=== PATIENT | male | born 1935 | race Caucasian/White ===

== ENCOUNTER → 2018-06-02 09:15 | Outpatient (CLI) | payer MEDICARE, SELFPAY | PROVIDERS: PCP Family Medicine; Visit Provider Urology | DX: N45.1 Epididymitis (principal) | CPT/HCPCS: 99213 ==

== ENCOUNTER → 2018-06-09 10:45 | Outpatient (BNVA) | payer MEDICARE, SELFPAY | PROVIDERS: PCP Family Medicine; Visit Provider Urology | DX: N45.1 Epididymitis (principal) | CPT/HCPCS: 99213 ==

== ENCOUNTER → 2018-06-25 13:04 | Outpatient (BNVA) | payer MEDICARE, SELFPAY | PROVIDERS: Visit Provider Urology | DX: C67.9 Malignant neoplasm of bladder, unspecified (principal) | CPT/HCPCS: 52000; 99213 ==

== ENCOUNTER 2018-07-02 00:19 | Outpatient (CLI) | payer MEDICARE, SELFPAY ==
--- NOTE | 2018-07-02 08:30 | ETT_ITS ---
*[facility]* *[facility]* [address] [place] [address] Stress Electrocardiography Josafat protocol Date of study: 07/02/2018 *PATIENT PRESENTATION* Height: 170.2cm (67in) Blood Pressure: Weight: 96.4kg (212lb) BSA: 2.17m^2 Ordering physician: Mark Starr MD Impressions: - Abnormal study , ST depressions without angina. - Subjectively negative. Objectively positive - horizontal ST depression in II, III, aVF, V4-V6. - Patient in rate controlled atrial fib at baseline with rapid escalation of heart rate with exercise. Summary: 1. Stress: The target heart rate was achieved. The heart rate response to stress is exaggerated. Indication: I48.0. History: REASON FOR VISIT: PATIENT DIAGNOSED LAST YEAR WITH ATRIAL FIBRILLATION AND STARTED ON METOPROLOL 50MG. ON THIS DOSAGE PATIENT REPORTS INCREASED DIZZINESS. METOPROLOL WAS THEREFORE DROPPED TO 25MG. PATIENT STATES THAT WHEN HE WAKES UP IN THE MORNING HE DOES NOT FEEL WELL RESTED, BUT IS OTHERWISE ASYMPTOMATIC. PATIENT BELIEVES HE IS HAVING STRESS TEST TO EVALUATE MEDICATION EFFECTIVENESS. PATIENT LAST TOOK METOPROLOL ON FRIDAY, RECOMMENDED BY FOR THIS EXAM. ECHOCARDIOGRAM 07/25/17: EJECTION FRACTION 55-60% WITH MILD LVH. DILATED RIGHT VENTRICLE. MODERATELY DILATED LEFT ATRIUM. MODERATE REGURGITATION OF TRICUSPID VALVE. LAST EKG 10/22/17: ATRIAL FIBRILLATION WITH RIGHT BUNDLE BRANCH BLOCK, INVERTED T WAVE, HEART RATE 53 BPM. PAST MEDICAL HISTORY: ATRIAL FIBRILLATION, HYPERTENSION, HYPERLIPIDEMIA, BLADDER CANCER. FAMILY HISTORY: MOTHER - ANGINA. SMOKING STATUS: NONE (DISTANT HISTORY). EXERCISE ROUTINE: NONE. Risk factors: Family history of coronary artery disease. Hypertension. Dyslipidemia. Cholesterol: 101mg/dl. HDL: 30mg/dl. LDL: 61mg/dl. Triglycerides: 76mg/dl. ALLERGIES: NO KNOWN ALLERGIES. MEDICATIONS: AMLODIPINE BESYLATE 5MG, DAILY. METOPROLOL CR 25MG, DAILY. ELIQUIS 5MG, BID. LOSARTAN POTASSIUM 50MG, DAILY. MULTIVITAMIN, DAILY. LECITHIN 1200MG, DAILY. LOVASTATIN 10MG, HS. Protocol: Josafat protocol. Baseline ECG: ATRIAL FIBRILLATION WITH RIGHT BUNDLE BRANCH BLOCK. OCCASIONAL PREMATURE VENTRICULAR CONTRACTIONS. INVERTED T WAVE. HEART RATE 80 BPM. Stress protocol: + +---+ +---+ +--------+ !Stage !HR !BP (mmHg) !Sat!Rhythm !Symptoms! + +---+ +---+ +--------+ !Baseline supine !80 !164/60 (95)!---!A-fib, occasional !--------! ! ! ! ! !PVC's ! ! + +---+ +---+ +--------+ !Baseline standing !86 !168/80 !---! !--------! ! ! !(109) ! ! ! ! + +---+ +---+ +--------+ !Stage I; 1.7mph, !162!142/88 !96%! !None ! !10degrees; 3 min ! !(106) ! ! ! ! + +---+ +---+ +--------+ !Peak stress !174! !---! !--------! + +---+ +---+ +--------+ !Recovery; 1 min !143!188/80 !---!Frequent PVC's !--------! ! ! !(116) ! ! ! ! + +---+ +---+ +--------+ !Recovery; 3 min !85 !180/76 !---! !--------! ! ! !(111) ! ! ! ! + +---+ +---+ +--------+ !Recovery; 6 min !82 !134/72 (93)!---!Occasional PVC's !--------! + +---+ +---+ +--------+ * Stress results: Maximal heart rate during stress was 174bpm (125% of maximal predicted heart rate). The maximal predicted heart rate was 139bpm. The target heart rate was achieved. The heart rate response to stress is exaggerated. The rate-pressure product for the peak heart rate and blood pressure was 91885dm Hg/min. Stress ECG: TREADMILL PORTION OF EXERCISE STRESS TEST ENDED IN 2MIN 31SEC DUE TO PATIENT EXCEDING MAX HEART RATE. TACHYCARDIC HEART RATE RESPONSE TO EXERCISE. HYPOTENSIVE BLOOD PRESSURE RESPONSE TO EXERCISE. ASYMPTOMATIC. MAX HR 174 BPM, 125% OF TARGET. APPROXIMATE METS ACHIEVED 4.64. NO ANGINA REPORTED. OCCASIONAL PREMATURE VENTRICULAR CONTRACTIONS AT BASELINE WITH INCREASE IN PVCS NOTED IN MINUTE TWO OF RECOVERY PERIOD. SHORT PERIODS OF BIGEMINY/TRIGEMINY NOTED DURING THIS TIME. PVC FREQUENCY DECREASING TO BASELINE BY MINUTE FIVE OF RECOVERY. SIGNIFICANT HORIZONTAL/DOWNSLOPING ST SEGMENT DEPRESSION NOTED IN LEADS II, AVF, V4, V5, AND V6 AT THE BEGINNING OF RECOVERY. ST SEGMENT CHANGES RETURNING TO BASELINE BY MINUTE FOUR OF RECOVERY PERIOD. MARKEDLY DIMINISHED FUNCTIONAL CAPACITY. Study data: Gonsalo Bernal MD supervised and was readily available during the procedure. This study was interpreted by [facility]. Study status: Routine. Consent: The risks, benefits, and alternatives to the procedure were explained to the patient and informed consent was obtained. Procedure: Initial setup. A baseline ECG was recorded. Surface ECG leads and manual cuff blood pressure measurements were monitored. Heart sounds: Irregular. Lung sounds: Normal. Treadmill exercise testing was performed using the Josafat protocol. Study completion: The patient tolerated the procedure well and was discharged from the lab. Discharge: The patient left the laboratory in stable condition. Birthdate: Patient birthdate: 1935. Sex: Gender: male. Study date: Study date: 07/02/2018. Study time: 08:30 AM. Signature Documentation: The Stress ECG portion of this study was interpreted by Gonsalo Bernal MD. Electronically signed by Gonsalo Bernal 07/02/2018 11:11
== END 2018-07-02 00:39 ==
PROVIDERS: PCP Family Medicine; Visit Provider Internal Medicine Interventional Cardiology
DX: I48.0 Paroxysmal atrial fibrillation (principal); R94.30 Abnormal result of cardiovascular function study, unspecified; I45.10 Unspecified right bundle-branch block; I10 Essential (primary) hypertension; E78.5 Hyperlipidemia, unspecified; Z82.49 Family history of ischemic heart disease and other diseases of the circulatory system
CPT/HCPCS: 93016; 93018; 93017

== ENCOUNTER → 2018-07-13 12:42 | Outpatient (BNVA) | payer MEDICARE, SELFPAY | PROVIDERS: Visit Provider Internal Medicine Interventional Cardiology | DX: I48.91 Unspecified atrial fibrillation (principal); I10 Essential (primary) hypertension; Z71.2 Person consulting for explanation of examination or test findings | CPT/HCPCS: 99213 ==

== ENCOUNTER 2018-07-20 00:10 | Outpatient (CLI) | payer MEDICARE, SELFPAY ==
--- NOTE | 2018-07-20 06:40 | MERGEMPI_ITS ---
*[facility]* *[facility]* [address] [place] [address] Myocardial Perfusion Imaging - SPECT Regadenoson Date of study: 07/20/2018 *PATIENT PRESENTATION* Height: 170.2cm (67in) Blood Pressure: Weight: 96.4kg (212lb) BSA: 2.17m^2 Referring physician: Mark Starr MD Ordering physician: Mark Starr MD Impressions: Normal perfusion by Tc99m Sestamibi Imaging. Summary: 1. Myocardial perfusion imaging: No myocardial perfusion defects noted. 2. The calculated left ventricular ejection fraction after stress: 60%. No left ventricular regional motion abnormality. Indication: R94.31. History: REASON FOR TESTING: PT REPORTS HE IS HERE FOR HEART DISEASE SCREENING. PAST MEDICAL HISTORY: ATRIAL FIBRILLATION. HYPERTENSION. RV DILATATION. HYPERLIPIDEMIA. EF 55%-60%-AUGUST 04, 2017. FAMILY HISTORY: MOTHER-ANGINA. SMOKING: REMOTE HISTORY QUIT 1956. EXERCISE: PT IS ACTIVE REGULARLY. Risk factors: Hypertension. Dyslipidemia. Cholesterol: 101mg/dl. HDL: 30mg/dl. LDL: 61mg/dl. Triglycerides: 76mg/dl. ALLERGIES: NO KNOWN DRUG ALLERGIES. MEDICATIONS: AMLODIPINE BESYLATE 5 MG DAILY. METOPROLOL CR 25 MG DAILY. ELIQUIS 5 MG BID. LOSARTAN POTASSIUM 50 MG DAILY. MULIVITAMIN DAILY. LECITHIN 1200 MG DAILY. LOVASTATIN 10 MG HS. Imaging Technique: Protocol: Regadenoson. Acquisition: Gated SPECT; 1 day - rest/stress. The patient was imaged in the supine position. Attenuation correction used. Isotope administration: - Rest. Tc[99m]-sestamibi. Dose: 10.4mCi. Date: 2017. Injection time: 08:10 AM. Injection to stress time: 00:45. - Stress. Tc[99m]-sestamibi. Dose: 33.3mCi. Injection time: 09:50 AM. 1-2 min before end of exercise Baseline ECG: ATIAL FIBRILLATION. HR=87 BPM. RBB. Stress protocol: +--------+---+ + + !Stage !HR !BP (mmHg) !Comments ! +--------+---+ + + !Baseline!83 !155/75 (102)! ! +--------+---+ + + !1 min !128!162/74 (103)!Inject Regadenoson.! +--------+---+ + + !3 min !95 !176/78 (111)! ! +--------+---+ + + !6 min !90 !168/68 (101)! ! +--------+---+ + + * Stress results: The rate-pressure product for the peak heart rate and blood pressure was 08411cx Hg/min. Stress ECG: LEXISCAN STRESS TEST ENDED IN 7 MINUTES & 33 SECONDS. PT EXPERIENCED NO SIGNIFICANT SIDE EFFECTS FROM LEXISCAN. HEART RATE IN ATRIAL FIBRILLATION AT BASELINE BLOOD PRESSURE DID NOT DECREASE IN RESPONSE TO LEXISCAN INJECTION NO SIGNIFICANT ECTOPY NO ANGINA ST SEGMENT DEPRESSIONS IN PRECORDIAL LEADS AT BASELINE. PT HAS A RBBB. MILD ST SEGMENT DEPRESSIONS IN INFERIOR LEADS NOTED 2-3 MINUTES POST LEXISCAN INJECTION. Myocardial perfusion: Imaging information: gated. No myocardial perfusion defects noted. Ventricular Function (Wall Motion): The calculated left ventricular ejection fraction after stress: 60%. No left ventricular regional motion abnormality. Study data: Mark Starr MD supervised and was readily available during the procedure. This study was interpreted by [facility]. Study status: Routine. Consent: The risks, benefits, and alternatives to the procedure were explained to the patient and informed consent was obtained. Procedure: Initial setup. A baseline ECG was recorded. Surface ECG leads and manual cuff blood pressure measurements were monitored. Heart sounds: Normal. Lung sounds: Normal. Regadenoson stress test. Stress testing was performed, with regadenoson by intravenous bolus, for a total dose of 0.4mgover 10.00sec, followed by a 5ml saline flush. The infusion was terminated due to per protocol. Study completion: All catheters inserted during the procedure were removed. The patient tolerated the procedure well and was discharged from the lab. Discharge: The patient left the laboratory in stable condition. Birthdate: Patient birthdate: 1935. Sex: Gender: male. Study date: Study date: 07/20/2018. Study time: 06:40 AM. Electronically signed by Mark Starr MD 07/20/2018 17:56
[2018-07-20] MEDS: Regadenoson 0.4 MG/5 ML SYR IVP (10:24)
== END 2018-07-20 00:30 ==
PROVIDERS: PCP Family Medicine; Visit Provider Internal Medicine Interventional Cardiology
DX: R94.31 Abnormal electrocardiogram [ECG] [EKG] (principal); I48.91 Unspecified atrial fibrillation; I10 Essential (primary) hypertension; I51.7 Cardiomegaly
CPT/HCPCS: 78452; 93016; 93018; 93017; J2785

== ENCOUNTER 2018-08-10 08:27 | Outpatient (CLI) | payer MEDICARE, SELFPAY ==
[2018-08-10 09:29] LABS: HCT 39.7 % (40.0-50.0); Mean Corp. HGB Concentration 32.7 g/dL (32.0-36.0); Mean Corpuscular Hemoglobin 29.8 pg (27.0-33.0); Mean Corpuscular Volume 91.1 fL (80-95); Mean Platelet Volume 11.8 fL (8.0-11.0); Platelet Count 240 x1000/uL (130-400); RBC 4.36 m/cumm (4.50-6.00); RBC Distribution Width 16.4 % (11.8-14.1); White Blood Cell Count 10.07 k/cumm (4.4-10.8)
[2018-08-10 10:09] LABS: Potassium 4.7 mmol/L (3.5-5.1)
== END 2018-08-10 08:47 ==
PROVIDERS: PCP Family Medicine; Visit Provider Family Medicine
DX: I10 Essential (primary) hypertension (principal); D64.9 Anemia, unspecified
CPT/HCPCS: 36415; 85027; 82565; 84132

== ENCOUNTER → 2018-08-24 08:00 | Outpatient (BNVA) | payer MEDICARE, SELFPAY | PROVIDERS: PCP Family Medicine; Visit Provider Urology | DX: C67.1 Malignant neoplasm of dome of bladder (principal); N32.9 Bladder disorder, unspecified | CPT/HCPCS: 52224; 99212; 99213 ==

== ENCOUNTER 2018-08-31 02:12 | Outpatient (CLI) | payer MEDICARE, SELFPAY | END 2018-08-31 02:32 | PROVIDERS: PCP Family Medicine; Visit Provider Dermatology | DX: L40.9 Psoriasis, unspecified (principal) | CPT/HCPCS: 96910 ==

== ENCOUNTER 2018-09-02 02:07 | Outpatient (CLI) | payer MEDICARE, SELFPAY | END 2018-09-02 02:27 | PROVIDERS: PCP Family Medicine; Visit Provider Dermatology | DX: L40.9 Psoriasis, unspecified (principal) | CPT/HCPCS: 96910 ==

== ENCOUNTER 2018-09-04 01:19 | Outpatient (CLI) | payer MEDICARE, SELFPAY | END 2018-09-04 01:39 | PROVIDERS: PCP Family Medicine; Visit Provider Dermatology | DX: L40.9 Psoriasis, unspecified (principal) | CPT/HCPCS: 96910 ==

== ENCOUNTER 2018-09-07 01:35 | Outpatient (CLI) | payer MEDICARE, SELFPAY | END 2018-09-07 01:55 | PROVIDERS: PCP Family Medicine; Visit Provider Dermatology | DX: L40.9 Psoriasis, unspecified (principal) | CPT/HCPCS: 96910 ==

== ENCOUNTER 2018-09-09 02:30 | Outpatient (CLI) | payer MEDICARE, SELFPAY | END 2018-09-09 02:50 | PROVIDERS: PCP Family Medicine; Visit Provider Dermatology | DX: L40.9 Psoriasis, unspecified (principal) | CPT/HCPCS: 96910 ==

== ENCOUNTER 2018-09-11 02:45 | Outpatient (CLI) | payer MEDICARE, SELFPAY | END 2018-09-11 03:05 | PROVIDERS: PCP Family Medicine; Visit Provider Dermatology | DX: L40.9 Psoriasis, unspecified (principal) | CPT/HCPCS: 96910 ==

== ENCOUNTER 2018-09-14 02:35 | Outpatient (CLI) | payer MEDICARE, SELFPAY | END 2018-09-14 02:55 | PROVIDERS: PCP Family Medicine; Visit Provider Dermatology | DX: L40.9 Psoriasis, unspecified (principal) | CPT/HCPCS: 96910 ==

== ENCOUNTER 2018-09-16 02:22 | Outpatient (CLI) | payer MEDICARE, SELFPAY | END 2018-09-16 02:42 | PROVIDERS: PCP Family Medicine; Visit Provider Dermatology | DX: L40.9 Psoriasis, unspecified (principal) | CPT/HCPCS: 96910 ==

== ENCOUNTER 2018-09-18 02:15 | Outpatient (CLI) | payer MEDICARE, SELFPAY | END 2018-09-18 02:35 | PROVIDERS: PCP Family Medicine; Visit Provider Dermatology | DX: L40.9 Psoriasis, unspecified (principal) | CPT/HCPCS: 96910 ==

== ENCOUNTER 2018-09-21 02:33 | Outpatient (CLI) | payer MEDICARE, SELFPAY | END 2018-09-21 02:53 | PROVIDERS: PCP Family Medicine; Visit Provider Dermatology | DX: L40.9 Psoriasis, unspecified (principal) | CPT/HCPCS: 96910 ==

== ENCOUNTER 2018-09-25 02:28 | Outpatient (CLI) | payer MEDICARE, SELFPAY | END 2018-09-25 02:48 | PROVIDERS: PCP Family Medicine; Visit Provider Dermatology | DX: L40.9 Psoriasis, unspecified (principal) | CPT/HCPCS: 96910 ==

== ENCOUNTER 2018-09-30 01:09 | Outpatient (CLI) | payer MEDICARE, SELFPAY | END 2018-09-30 01:29 | PROVIDERS: PCP Family Medicine; Visit Provider Dermatology | DX: L40.9 Psoriasis, unspecified (principal) | CPT/HCPCS: 96910 ==

== ENCOUNTER 2018-10-02 02:33 | Outpatient (CLI) | payer MEDICARE, SELFPAY | END 2018-10-02 02:53 | PROVIDERS: PCP Family Medicine; Visit Provider Dermatology | DX: L40.9 Psoriasis, unspecified (principal) | CPT/HCPCS: 96910 ==

== ENCOUNTER 2018-10-05 02:20 | Outpatient (CLI) | payer MEDICARE, SELFPAY | END 2018-10-05 02:40 | PROVIDERS: PCP Family Medicine; Visit Provider Dermatology | DX: L40.9 Psoriasis, unspecified (principal) | CPT/HCPCS: 96910 ==

== ENCOUNTER 2018-10-07 02:40 | Outpatient (CLI) | payer MEDICARE, SELFPAY | END 2018-10-07 03:00 | PROVIDERS: PCP Family Medicine; Visit Provider Dermatology | DX: L40.9 Psoriasis, unspecified (principal) | CPT/HCPCS: 96910 ==

== ENCOUNTER 2018-10-09 02:46 | Outpatient (CLI) | payer MEDICARE, SELFPAY | END 2018-10-09 03:06 | PROVIDERS: PCP Family Medicine; Visit Provider Dermatology | DX: L40.9 Psoriasis, unspecified (principal) | CPT/HCPCS: 96910 ==

== ENCOUNTER 2018-10-12 01:44 | Outpatient (CLI) | payer MEDICARE, SELFPAY | END 2018-10-12 02:04 | PROVIDERS: PCP Family Medicine; Visit Provider Dermatology | DX: L40.9 Psoriasis, unspecified (principal) | CPT/HCPCS: 96910 ==

== ENCOUNTER 2018-10-14 01:10 | Outpatient (CLI) | payer MEDICARE, SELFPAY | END 2018-10-14 01:30 | PROVIDERS: PCP Family Medicine; Visit Provider Dermatology | DX: L40.9 Psoriasis, unspecified (principal) | CPT/HCPCS: 96910 ==

== ENCOUNTER 2018-10-16 01:05 | Outpatient (CLI) | payer MEDICARE, SELFPAY | END 2018-10-16 01:25 | PROVIDERS: PCP Family Medicine; Visit Provider Dermatology | DX: L40.9 Psoriasis, unspecified (principal) | CPT/HCPCS: 96910 ==

== ENCOUNTER 2018-10-19 02:40 | Outpatient (CLI) | payer MEDICARE, SELFPAY | END 2018-10-19 03:00 | PROVIDERS: PCP Family Medicine; Visit Provider Dermatology | DX: L40.9 Psoriasis, unspecified (principal) | CPT/HCPCS: 96910 ==

== ENCOUNTER 2018-10-21 02:14 | Outpatient (CLI) | payer MEDICARE, SELFPAY | END 2018-10-21 02:34 | PROVIDERS: PCP Family Medicine; Visit Provider Dermatology | DX: L40.9 Psoriasis, unspecified (principal) | CPT/HCPCS: 96910 ==

== ENCOUNTER 2018-10-23 01:43 | Outpatient (CLI) | payer MEDICARE, SELFPAY | END 2018-10-23 02:03 | PROVIDERS: PCP Family Medicine; Visit Provider Dermatology | DX: L40.9 Psoriasis, unspecified (principal) | CPT/HCPCS: 96910 ==

== ENCOUNTER 2018-10-26 02:00 | Outpatient (CLI) | payer MEDICARE, SELFPAY | END 2018-10-26 02:20 | PROVIDERS: PCP Family Medicine; Visit Provider Dermatology | DX: L40.9 Psoriasis, unspecified (principal) | CPT/HCPCS: 96910 ==

== ENCOUNTER 2018-10-28 02:40 | Outpatient (CLI) | payer MEDICARE, SELFPAY | END 2018-10-28 03:00 | PROVIDERS: PCP Family Medicine; Visit Provider Dermatology | DX: L40.9 Psoriasis, unspecified (principal) | CPT/HCPCS: 96910 ==

== ENCOUNTER 2018-10-30 01:19 | Outpatient (CLI) | payer MEDICARE, SELFPAY | END 2018-10-30 01:39 | PROVIDERS: PCP Family Medicine; Visit Provider Dermatology | DX: L40.9 Psoriasis, unspecified (principal) | CPT/HCPCS: 96910 ==

== ENCOUNTER 2018-11-02 01:37 | Outpatient (CLI) | payer MEDICARE, SELFPAY | END 2018-11-02 01:57 | PROVIDERS: PCP Family Medicine; Visit Provider Dermatology | DX: L40.9 Psoriasis, unspecified (principal); I48.91 Unspecified atrial fibrillation; I10 Essential (primary) hypertension; Z71.2 Person consulting for explanation of examination or test findings | CPT/HCPCS: 96910; 93005; 99213 ==

== ENCOUNTER 2018-11-02 09:29 | Outpatient (CLI) | payer MEDICARE, SELFPAY | END 2018-11-02 09:49 | PROVIDERS: PCP Family Medicine; Visit Provider Internal Medicine Interventional Cardiology | DX: I48.91 Unspecified atrial fibrillation (principal); I10 Essential (primary) hypertension; R94.31 Abnormal electrocardiogram [ECG] [EKG] | CPT/HCPCS: 93005; 93010 ==

== ENCOUNTER 2018-11-04 05:28 | Outpatient (CLI) | payer MEDICARE, SELFPAY | END 2018-11-04 05:48 | PROVIDERS: PCP Family Medicine; Visit Provider Dermatology | DX: L40.9 Psoriasis, unspecified (principal) | CPT/HCPCS: 96910 ==

== ENCOUNTER 2018-11-06 07:20 | Outpatient (CLI) | payer MEDICARE, SELFPAY | END 2018-11-06 07:40 | PROVIDERS: PCP Family Medicine; Visit Provider Dermatology | DX: L40.9 Psoriasis, unspecified (principal) | CPT/HCPCS: 96910 ==

== ENCOUNTER 2018-11-09 02:24 | Outpatient (CLI) | payer MEDICARE, SELFPAY | END 2018-11-09 02:44 | PROVIDERS: PCP Family Medicine; Visit Provider Dermatology | DX: L40.9 Psoriasis, unspecified (principal) | CPT/HCPCS: 96910 ==

== ENCOUNTER 2018-11-11 02:05 | Outpatient (CLI) | payer MEDICARE, SELFPAY | END 2018-11-11 02:25 | PROVIDERS: PCP Family Medicine; Visit Provider Dermatology | DX: L40.9 Psoriasis, unspecified (principal) | CPT/HCPCS: 96910 ==

== ENCOUNTER 2018-11-13 01:52 | Outpatient (CLI) | payer MEDICARE, SELFPAY | END 2018-11-13 02:12 | PROVIDERS: PCP Family Medicine; Visit Provider Dermatology | DX: L40.9 Psoriasis, unspecified (principal) | CPT/HCPCS: 96910 ==

== ENCOUNTER 2018-11-16 02:57 | Outpatient (CLI) | payer MEDICARE, SELFPAY | END 2018-11-16 03:17 | PROVIDERS: PCP Family Medicine; Visit Provider Dermatology | DX: L40.9 Psoriasis, unspecified (principal) | CPT/HCPCS: 96910 ==

== ENCOUNTER 2018-11-18 02:11 | Outpatient (CLI) | payer MEDICARE, SELFPAY | END 2018-11-18 02:31 | PROVIDERS: PCP Family Medicine; Visit Provider Dermatology | DX: L40.9 Psoriasis, unspecified (principal) | CPT/HCPCS: 96910 ==

== ENCOUNTER 2018-11-20 03:11 | Outpatient (CLI) | payer MEDICARE, SELFPAY | END 2018-11-20 03:31 | PROVIDERS: PCP Family Medicine; Visit Provider Dermatology | DX: L40.9 Psoriasis, unspecified (principal) | CPT/HCPCS: 96910 ==

== ENCOUNTER → 2018-11-23 08:43 | Outpatient (BNVA) | payer MEDICARE, SELFPAY | PROVIDERS: PCP Family Medicine; Visit Provider Urology | DX: C67.9 Malignant neoplasm of bladder, unspecified (principal) | CPT/HCPCS: 52000; 99213 ==

== ENCOUNTER 2018-11-25 01:28 | Outpatient (CLI) | payer MEDICARE, SELFPAY | END 2018-11-25 01:48 | PROVIDERS: PCP Family Medicine; Visit Provider Dermatology | DX: L40.9 Psoriasis, unspecified (principal) | CPT/HCPCS: 96910 ==

== ENCOUNTER 2018-11-30 07:25 | Outpatient (CLI) | payer MEDICARE, SELFPAY | END 2018-11-30 07:45 | PROVIDERS: PCP Family Medicine; Visit Provider Dermatology | DX: L40.9 Psoriasis, unspecified (principal) | CPT/HCPCS: 96910 ==

== ENCOUNTER 2018-12-02 01:04 | Outpatient (CLI) | payer MEDICARE, SELFPAY | END 2018-12-02 01:24 | PROVIDERS: PCP Family Medicine; Visit Provider Dermatology | DX: L40.9 Psoriasis, unspecified (principal) | CPT/HCPCS: 96910 ==

== ENCOUNTER 2018-12-04 01:40 | Outpatient (CLI) | payer MEDICARE, SELFPAY | END 2018-12-04 02:00 | PROVIDERS: PCP Family Medicine; Visit Provider Dermatology | DX: L40.9 Psoriasis, unspecified (principal) | CPT/HCPCS: 96910 ==

== ENCOUNTER 2018-12-07 02:36 | Outpatient (CLI) | payer MEDICARE, SELFPAY | END 2018-12-07 02:56 | PROVIDERS: PCP Family Medicine; Visit Provider Dermatology | DX: L40.9 Psoriasis, unspecified (principal) | CPT/HCPCS: 96910 ==

== ENCOUNTER 2018-12-09 03:02 | Outpatient (CLI) | payer MEDICARE, SELFPAY | END 2018-12-09 03:22 | PROVIDERS: PCP Family Medicine; Visit Provider Dermatology | DX: L40.9 Psoriasis, unspecified (principal) | CPT/HCPCS: 96910 ==

== ENCOUNTER 2018-12-11 01:15 | Outpatient (CLI) | payer MEDICARE, SELFPAY | END 2018-12-11 01:35 | PROVIDERS: PCP Family Medicine; Visit Provider Dermatology | DX: L40.9 Psoriasis, unspecified (principal) | CPT/HCPCS: 96910 ==

== ENCOUNTER 2018-12-14 03:05 | Outpatient (CLI) | payer MEDICARE, SELFPAY | END 2018-12-14 03:25 | PROVIDERS: PCP Family Medicine; Visit Provider Dermatology | DX: L40.9 Psoriasis, unspecified (principal) | CPT/HCPCS: 96910 ==

== ENCOUNTER 2018-12-16 03:07 | Outpatient (CLI) | payer MEDICARE, SELFPAY | END 2018-12-16 03:27 | PROVIDERS: PCP Family Medicine; Visit Provider Dermatology | DX: L40.9 Psoriasis, unspecified (principal) | CPT/HCPCS: 96910 ==

== ENCOUNTER 2018-12-18 02:29 | Outpatient (CLI) | payer MEDICARE, SELFPAY | END 2018-12-18 02:49 | PROVIDERS: PCP Family Medicine; Visit Provider Dermatology | DX: L40.9 Psoriasis, unspecified (principal) | CPT/HCPCS: 96910 ==

== ENCOUNTER 2018-12-21 02:00 | Outpatient (CLI) | payer MEDICARE, SELFPAY | END 2018-12-21 02:20 | PROVIDERS: PCP Family Medicine; Visit Provider Dermatology | DX: L40.9 Psoriasis, unspecified (principal) | CPT/HCPCS: 96910 ==

== ENCOUNTER → 2018-12-22 09:35 | Outpatient (BNVA) | payer MEDICARE, SELFPAY | PROVIDERS: PCP Family Medicine; Visit Provider Urology | DX: C67.9 Malignant neoplasm of bladder, unspecified (principal) | CPT/HCPCS: 52000; 99212 ==

== ENCOUNTER 2018-12-23 02:45 | Outpatient (CLI) | payer MEDICARE, SELFPAY | END 2018-12-23 03:05 | PROVIDERS: PCP Family Medicine; Visit Provider Dermatology | DX: L40.9 Psoriasis, unspecified (principal) | CPT/HCPCS: 96910 ==

== ENCOUNTER 2018-12-25 01:42 | Outpatient (CLI) | payer MEDICARE, SELFPAY | END 2018-12-25 02:02 | PROVIDERS: PCP Family Medicine; Visit Provider Dermatology | DX: L40.9 Psoriasis, unspecified (principal) | CPT/HCPCS: 96910 ==

== ENCOUNTER 2018-12-28 02:07 | Outpatient (CLI) | payer MEDICARE, SELFPAY | END 2018-12-28 02:27 | PROVIDERS: PCP Family Medicine; Visit Provider Dermatology | DX: L40.9 Psoriasis, unspecified (principal) | CPT/HCPCS: 96910 ==

== ENCOUNTER 2018-12-30 02:26 | Outpatient (CLI) | payer MEDICARE, SELFPAY | END 2018-12-30 02:46 | PROVIDERS: PCP Family Medicine; Visit Provider Dermatology | DX: L40.9 Psoriasis, unspecified (principal) | CPT/HCPCS: 96910 ==

== ENCOUNTER 2019-01-01 02:13 | Outpatient (CLI) | payer MEDICARE, SELFPAY | END 2019-01-01 02:33 | PROVIDERS: PCP Family Medicine; Visit Provider Dermatology | DX: L40.9 Psoriasis, unspecified (principal) | CPT/HCPCS: 96910 ==

== ENCOUNTER 2019-01-04 02:17 | Outpatient (CLI) | payer MEDICARE, SELFPAY | END 2019-01-04 02:37 | PROVIDERS: PCP Family Medicine; Visit Provider Dermatology | DX: L40.9 Psoriasis, unspecified (principal) | CPT/HCPCS: 96910 ==

== ENCOUNTER 2019-01-06 04:48 | Outpatient (CLI) | payer MEDICARE, SELFPAY | END 2019-01-06 05:08 | PROVIDERS: PCP Family Medicine; Visit Provider Dermatology | DX: L40.9 Psoriasis, unspecified (principal) | CPT/HCPCS: 96910 ==

== ENCOUNTER 2019-01-08 03:04 | Outpatient (CLI) | payer MEDICARE, SELFPAY | END 2019-01-08 03:24 | PROVIDERS: PCP Family Medicine; Visit Provider Dermatology | DX: L40.9 Psoriasis, unspecified (principal) | CPT/HCPCS: 96910 ==

== ENCOUNTER 2019-01-11 02:24 | Outpatient (CLI) | payer MEDICARE, SELFPAY | END 2019-01-11 02:44 | PROVIDERS: PCP Family Medicine; Visit Provider Dermatology | DX: L40.9 Psoriasis, unspecified (principal) | CPT/HCPCS: 96910 ==

== ENCOUNTER 2019-01-13 01:20 | Outpatient (CLI) | payer MEDICARE, SELFPAY | END 2019-01-13 01:40 | PROVIDERS: PCP Family Medicine; Visit Provider Dermatology | DX: L40.9 Psoriasis, unspecified (principal) | CPT/HCPCS: 96910 ==

== ENCOUNTER 2019-01-15 01:33 | Outpatient (CLI) | payer MEDICARE, SELFPAY | END 2019-01-15 01:53 | PROVIDERS: PCP Family Medicine; Visit Provider Dermatology | DX: L40.9 Psoriasis, unspecified (principal) | CPT/HCPCS: 96910 ==

== ENCOUNTER 2019-01-18 01:51 | Outpatient (CLI) | payer MEDICARE, SELFPAY | END 2019-01-18 02:11 | PROVIDERS: PCP Family Medicine; Visit Provider Dermatology | DX: L40.9 Psoriasis, unspecified (principal) | CPT/HCPCS: 96910 ==

== ENCOUNTER 2019-01-20 00:52 | Outpatient (CLI) | payer MEDICARE, SELFPAY | END 2019-01-20 01:12 | PROVIDERS: PCP Family Medicine; Visit Provider Dermatology | DX: L40.9 Psoriasis, unspecified (principal) | CPT/HCPCS: 96910 ==

== ENCOUNTER 2019-01-22 01:34 | Outpatient (CLI) | payer MEDICARE, SELFPAY | END 2019-01-22 01:54 | PROVIDERS: PCP Family Medicine; Visit Provider Dermatology | DX: L40.9 Psoriasis, unspecified (principal) | CPT/HCPCS: 96910 ==

== ENCOUNTER 2019-01-25 02:17 | Outpatient (CLI) | payer MEDICARE, SELFPAY | END 2019-01-25 02:37 | PROVIDERS: PCP Family Medicine; Visit Provider Dermatology | DX: L40.9 Psoriasis, unspecified (principal) | CPT/HCPCS: 96910 ==

== ENCOUNTER 2019-02-24 09:07 | Outpatient (CLI) | payer MEDICARE, SELFPAY ==
[2019-02-24 10:44] LABS: HCT 40.2 % (40.0-50.0); HGB 13.4 g/dL (13.5-17.5); Mean Corp. HGB Concentration 33.3 g/dL (32.0-36.0); Mean Corpuscular Hemoglobin 30.9 pg (27.0-33.0); Mean Corpuscular Volume 92.6 fL (80-95); Mean Platelet Volume 11.9 fL (8.0-11.0); Platelet Count 179 x1000/uL (130-400); RBC 4.34 m/cumm (4.50-6.00); RBC Distribution Width 13.8 % (11.8-14.1); White Blood Cell Count 8.45 k/cumm (4.4-10.8)
[2019-02-24 13:43] LABS: Hemoglobin A1C 6.2 % (4.5-6.2)
== END 2019-02-24 09:27 ==
PROVIDERS: PCP Family Medicine; Visit Provider Family Medicine
DX: D64.9 Anemia, unspecified (principal); I10 Essential (primary) hypertension; E74.39 Other disorders of intestinal carbohydrate absorption
CPT/HCPCS: 36415; 85027; 83036

== ENCOUNTER → 2019-03-23 08:43 | Outpatient (BNVA) | payer MEDICARE, SELFPAY | PROVIDERS: PCP Family Medicine; Visit Provider Urology | DX: C67.9 Malignant neoplasm of bladder, unspecified (principal); Z87.898 Personal history of other specified conditions; Z79.01 Long term (current) use of anticoagulants; I48.91 Unspecified atrial fibrillation; I10 Essential (primary) hypertension | CPT/HCPCS: 52000; 99212 ==

== ENCOUNTER 2019-03-23 09:35 | Outpatient (CLI) | payer MEDICARE, SELFPAY ==
[2019-03-24 08:45] LABS: PSA, Diagnostic 4.5 ng/ml (0-6.5)
== END 2019-03-23 09:55 ==
PROVIDERS: PCP Family Medicine; Visit Provider Urology
DX: Z87.898 Personal history of other specified conditions (principal); C67.9 Malignant neoplasm of bladder, unspecified; N40.0 Benign prostatic hyperplasia without lower urinary tract symptoms; Z79.01 Long term (current) use of anticoagulants; I48.91 Unspecified atrial fibrillation; I10 Essential (primary) hypertension
CPT/HCPCS: 36415; 52000; 99212; 84153

== ENCOUNTER 2019-05-10 09:39 | Outpatient (CLI) | payer MEDICARE, SELFPAY | END 2019-05-10 09:59 | PROVIDERS: PCP Family Medicine; Visit Provider Internal Medicine Interventional Cardiology | DX: I48.91 Unspecified atrial fibrillation (principal); I10 Essential (primary) hypertension | CPT/HCPCS: 99213 ==

== ENCOUNTER → 2019-05-14 09:46 | Outpatient (BNVA) | payer MEDICARE, SELFPAY | PROVIDERS: PCP Family Medicine; Visit Provider Urology | DX: C67.9 Malignant neoplasm of bladder, unspecified (principal) | CPT/HCPCS: 52000; 99212 ==

== ENCOUNTER → 2019-06-17 09:44 | Outpatient (BNVA) | payer MEDICARE, SELFPAY | PROVIDERS: PCP Family Medicine; Visit Provider Urology | DX: C67.9 Malignant neoplasm of bladder, unspecified (principal) | CPT/HCPCS: 52000; 99213 ==

== ENCOUNTER → 2019-06-28 11:02 | Outpatient (BNVA) | payer MEDICARE, SELFPAY | PROVIDERS: PCP Family Medicine; Visit Provider Nurse Practitioner Gerontology | DX: R69 Illness, unspecified (principal) ==

== ENCOUNTER 2019-06-28 11:20 | Outpatient (CLI) | payer MEDICARE, SELFPAY ==
[2019-06-28 12:21] LABS: HGB 13.2 g/dL (13.5-17.5)
== END 2019-06-28 11:40 ==
PROVIDERS: PCP Family Medicine; Visit Provider Nurse Practitioner Gerontology
DX: R31.0 Gross hematuria (principal); C67.9 Malignant neoplasm of bladder, unspecified; Z79.01 Long term (current) use of anticoagulants
CPT/HCPCS: 36415; 81003; 99213; 85014; 85018

== ENCOUNTER 2019-06-28 11:57 | Outpatient (REF) | payer MEDICARE, SELFPAY | END 2019-06-28 12:17 | LOC: LBN 11:57 | PROVIDERS: PCP Family Medicine; Visit Provider Nurse Practitioner Gerontology | DX: R31.0 Gross hematuria (principal) | CPT/HCPCS: 87086 ==

== ENCOUNTER 2019-07-27 09:44 | Outpatient (CLI) | payer MEDICARE, SELFPAY ==
[2019-07-27 10:51] LABS: CREATININE 1.02 mg/dL (0.70-1.30); Calculated LDL 59 mg/dL; Cholesterol 106 mg/dL (50-200); HDL Cholesterol 34 mg/dL (40-60); Potassium 4.7 mmol/L (3.5-5.1); Triglyceride 67 mg/dL (30-150)
== END 2019-07-27 10:04 ==
PROVIDERS: PCP Family Medicine; Visit Provider Family Medicine
DX: I10 Essential (primary) hypertension (principal)
CPT/HCPCS: 36415; 80061; 82565; 84132

== ENCOUNTER 2019-09-15 01:55 | Outpatient (CLI) | payer MEDICARE, SELFPAY | END 2019-09-15 02:15 | PROVIDERS: PCP Family Medicine; Visit Provider Dermatology | DX: L40.9 Psoriasis, unspecified (principal) | CPT/HCPCS: 96900; 99211 ==

== ENCOUNTER 2019-09-17 00:38 | Outpatient (CLI) | payer MEDICARE, SELFPAY | END 2019-09-17 00:58 | PROVIDERS: PCP Family Medicine; Visit Provider Dermatology | DX: L40.9 Psoriasis, unspecified (principal); C67.9 Malignant neoplasm of bladder, unspecified | CPT/HCPCS: 52000; 96900; 99213 ==

== ENCOUNTER 2019-09-20 02:16 | Outpatient (CLI) | payer MEDICARE, SELFPAY | END 2019-09-20 02:36 | PROVIDERS: PCP Family Medicine; Visit Provider Dermatology | DX: L40.9 Psoriasis, unspecified (principal) | CPT/HCPCS: 96900 ==

== ENCOUNTER 2019-09-22 01:25 | Outpatient (CLI) | payer MEDICARE, SELFPAY | END 2019-09-22 01:45 | PROVIDERS: PCP Family Medicine; Visit Provider Dermatology | DX: L40.9 Psoriasis, unspecified (principal) | CPT/HCPCS: 96900 ==

== ENCOUNTER 2019-09-24 02:07 | Outpatient (CLI) | payer MEDICARE, SELFPAY | END 2019-09-24 02:27 | PROVIDERS: PCP Family Medicine; Visit Provider Dermatology | DX: L40.9 Psoriasis, unspecified (principal) | CPT/HCPCS: 96900; 99211 ==

== ENCOUNTER 2019-09-27 01:58 | Outpatient (CLI) | payer MEDICARE, SELFPAY | END 2019-09-27 02:18 | PROVIDERS: PCP Family Medicine; Visit Provider Dermatology | DX: L40.9 Psoriasis, unspecified (principal) | CPT/HCPCS: 96900 ==

== ENCOUNTER 2019-10-01 03:20 | Outpatient (CLI) | payer MEDICARE, SELFPAY | END 2019-10-01 03:40 | PROVIDERS: PCP Family Medicine; Visit Provider Dermatology | DX: L40.9 Psoriasis, unspecified (principal) | CPT/HCPCS: 96900 ==

== ENCOUNTER 2019-10-04 01:52 | Outpatient (CLI) | payer MEDICARE, SELFPAY | END 2019-10-04 02:12 | PROVIDERS: PCP Family Medicine; Visit Provider Dermatology | DX: L40.9 Psoriasis, unspecified (principal) | CPT/HCPCS: 96900 ==

== ENCOUNTER 2019-10-08 02:13 | Outpatient (CLI) | payer MEDICARE, SELFPAY | END 2019-10-08 02:33 | PROVIDERS: PCP Family Medicine; Visit Provider Dermatology | DX: L40.9 Psoriasis, unspecified (principal) | CPT/HCPCS: 96900 ==

== ENCOUNTER 2019-10-11 03:16 | Outpatient (CLI) | payer MEDICARE, SELFPAY | END 2019-10-11 03:36 | PROVIDERS: PCP Family Medicine; Visit Provider Dermatology | DX: L40.9 Psoriasis, unspecified (principal) | CPT/HCPCS: 96900 ==

== ENCOUNTER 2019-10-13 02:27 | Outpatient (CLI) | payer MEDICARE, SELFPAY | END 2019-10-13 02:47 | PROVIDERS: PCP Family Medicine; Visit Provider Dermatology | DX: L40.9 Psoriasis, unspecified (principal) | CPT/HCPCS: 96900 ==

== ENCOUNTER 2019-10-15 02:56 | Outpatient (CLI) | payer MEDICARE, SELFPAY | END 2019-10-15 03:16 | PROVIDERS: PCP Family Medicine; Visit Provider Dermatology | DX: L40.9 Psoriasis, unspecified (principal) | CPT/HCPCS: 96900 ==

== ENCOUNTER 2019-10-18 03:01 | Outpatient (CLI) | payer MEDICARE, SELFPAY | END 2019-10-18 03:21 | PROVIDERS: PCP Family Medicine; Visit Provider Dermatology | DX: L40.9 Psoriasis, unspecified (principal) | CPT/HCPCS: 96900 ==

== ENCOUNTER 2019-10-20 00:56 | Outpatient (CLI) | payer MEDICARE, SELFPAY | END 2019-10-20 01:16 | PROVIDERS: PCP Family Medicine; Visit Provider Dermatology | DX: L40.9 Psoriasis, unspecified (principal) | CPT/HCPCS: 96900 ==

== ENCOUNTER 2019-10-22 01:20 | Outpatient (CLI) | payer MEDICARE, SELFPAY | END 2019-10-22 01:40 | PROVIDERS: PCP Family Medicine; Visit Provider Dermatology | DX: L40.9 Psoriasis, unspecified (principal) | CPT/HCPCS: 96900 ==

== ENCOUNTER 2019-10-25 01:38 | Outpatient (CLI) | payer MEDICARE, SELFPAY | END 2019-10-25 01:58 | PROVIDERS: PCP Family Medicine; Visit Provider Dermatology | DX: L40.9 Psoriasis, unspecified (principal) | CPT/HCPCS: 96900 ==

== ENCOUNTER 2019-10-27 02:19 | Outpatient (CLI) | payer MEDICARE, SELFPAY | END 2019-10-27 02:39 | PROVIDERS: PCP Family Medicine; Visit Provider Dermatology | DX: L40.9 Psoriasis, unspecified (principal) | CPT/HCPCS: 96900 ==

== ENCOUNTER 2019-10-29 00:20 | Outpatient (CLI) | payer MEDICARE, SELFPAY | END 2019-10-29 00:40 | PROVIDERS: PCP Family Medicine; Visit Provider Dermatology | DX: L40.9 Psoriasis, unspecified (principal) | CPT/HCPCS: 96900 ==

== ENCOUNTER 2019-11-01 02:27 | Outpatient (CLI) | payer MEDICARE, SELFPAY | END 2019-11-01 02:47 | PROVIDERS: PCP Family Medicine; Visit Provider Dermatology | DX: L40.9 Psoriasis, unspecified (principal) | CPT/HCPCS: 96900 ==

== ENCOUNTER 2019-11-03 00:44 | Outpatient (CLI) | payer MEDICARE, SELFPAY | END 2019-11-03 01:04 | PROVIDERS: PCP Family Medicine; Visit Provider Dermatology | DX: L40.9 Psoriasis, unspecified (principal) | CPT/HCPCS: 96900 ==

== ENCOUNTER 2019-11-05 00:13 | Outpatient (CLI) | payer MEDICARE, SELFPAY | END 2019-11-05 00:33 | PROVIDERS: PCP Family Medicine; Visit Provider Dermatology | DX: L40.9 Psoriasis, unspecified (principal) | CPT/HCPCS: 96900 ==

== ENCOUNTER 2019-11-08 02:46 | Outpatient (CLI) | payer MEDICARE, SELFPAY | END 2019-11-08 03:06 | PROVIDERS: PCP Family Medicine; Visit Provider Dermatology | DX: L40.9 Psoriasis, unspecified (principal) | CPT/HCPCS: 96900 ==

== ENCOUNTER 2019-11-10 02:40 | Outpatient (CLI) | payer MEDICARE, SELFPAY | END 2019-11-10 03:00 | PROVIDERS: PCP Family Medicine; Visit Provider Dermatology | DX: L40.9 Psoriasis, unspecified (principal) | CPT/HCPCS: 96900 ==

== ENCOUNTER 2019-11-15 02:31 | Outpatient (CLI) | payer MEDICARE, SELFPAY | END 2019-11-15 02:51 | PROVIDERS: PCP Family Medicine; Visit Provider Dermatology | DX: L40.9 Psoriasis, unspecified (principal) | CPT/HCPCS: 96900 ==

== ENCOUNTER 2019-11-17 02:33 | Outpatient (CLI) | payer MEDICARE, SELFPAY | END 2019-11-17 02:53 | PROVIDERS: PCP Family Medicine; Visit Provider Dermatology | DX: L40.9 Psoriasis, unspecified (principal) | CPT/HCPCS: 96900 ==

== ENCOUNTER 2019-11-19 01:34 | Outpatient (CLI) | payer MEDICARE, SELFPAY | END 2019-11-19 01:54 | PROVIDERS: PCP Family Medicine; Visit Provider Dermatology | DX: L40.9 Psoriasis, unspecified (principal) | CPT/HCPCS: 96900 ==

== ENCOUNTER 2019-11-22 03:39 | Outpatient (CLI) | payer MEDICARE, SELFPAY | END 2019-11-22 03:59 | PROVIDERS: PCP Family Medicine; Visit Provider Dermatology | DX: L40.9 Psoriasis, unspecified (principal) | CPT/HCPCS: 96900 ==

== ENCOUNTER 2019-11-24 02:33 | Outpatient (CLI) | payer MEDICARE, SELFPAY ==
--- NOTE | 2019-11-24 07:45 | DI.US_ITS ---
EXAM: US CAROTID CLINICAL HISTORY: Syncope,R55 TECHNIQUE: Ultrasound performed using standard protocol. COMPARISON: Cardiac from 07/25/2017 FINDINGS: On the right, there is calcific plaque seen in the common carotid artery, the carotid bulb and the in ternal carotid artery proximally. No hemodynamically significant velocity elevations are present. T here is biphasic flow through the right vertebral artery. On the left, there is calcific plaque seen in the common carotid artery, carotid bulb and proximal in ternal carotid artery. No hemodynamically significant velocity elevations are present. There is ant egrade flow through the left vertebral artery. IMPRESSION: No evidence of hemodynamically significant cervical carotid artery stenosis.
== END 2019-11-24 02:53 ==
PROVIDERS: PCP Family Medicine; Visit Provider Family Medicine
DX: R55 Syncope and collapse (principal); L40.9 Psoriasis, unspecified
CPT/HCPCS: 96900; 93880

== ENCOUNTER 2019-11-24 03:37 | Outpatient (CLI) | payer MEDICARE, SELFPAY | END 2019-11-24 03:57 | PROVIDERS: PCP Family Medicine; Visit Provider Dermatology | DX: L40.9 Psoriasis, unspecified (principal) | CPT/HCPCS: 96900 ==

== ENCOUNTER 2019-11-26 01:24 | Outpatient (CLI) | payer MEDICARE, SELFPAY | END 2019-11-26 01:44 | PROVIDERS: PCP Family Medicine; Visit Provider Dermatology | DX: L40.9 Psoriasis, unspecified (principal) | CPT/HCPCS: 96900 ==

== ENCOUNTER 2019-11-26 02:17 | Outpatient (CLI) | payer MEDICARE, SELFPAY ==
--- NOTE | 2019-12-01 09:26 | W.HOLTRPT ---
Date of service: 12/01/19 Time of Service: 09:27 Holter Monitor Report Holter Monitor Note: The patient underwent Holter monitoring for a period of 48 hours and 19 minutes. Rhythm throughout was atrial fibrillation. Average heart rate was 59 bpm and minimum was 46. There were very rare ventricular ectopic beat Maximum heart rate was 105. There were 2 significant pauses which occurred during sleep, 1 2.9 seconds and the other 3.02 seconds The recording labeled ventricular tachycardia appeared to be artifact
== END 2019-11-26 02:37 ==
PROVIDERS: PCP Family Medicine; Visit Provider Family Medicine
DX: R55 Syncope and collapse (principal); I48.91 Unspecified atrial fibrillation; L40.9 Psoriasis, unspecified
CPT/HCPCS: 96900; 93225

== ENCOUNTER 2019-11-29 01:55 | Outpatient (CLI) | payer MEDICARE, SELFPAY | END 2019-11-29 02:15 | PROVIDERS: PCP Family Medicine; Visit Provider Dermatology | DX: L40.9 Psoriasis, unspecified (principal) | CPT/HCPCS: 96900 ==

== ENCOUNTER 2019-11-29 08:16 | Outpatient (CLI) | payer MEDICARE, SELFPAY | END 2019-11-29 08:36 | PROVIDERS: PCP Family Medicine; Visit Provider Family Medicine | DX: R55 Syncope and collapse (principal); I48.91 Unspecified atrial fibrillation; L40.9 Psoriasis, unspecified | CPT/HCPCS: 96900; 93226 ==

== ENCOUNTER 2019-12-01 02:18 | Outpatient (CLI) | payer MEDICARE, SELFPAY | END 2019-12-01 02:38 | PROVIDERS: PCP Family Medicine; Visit Provider Dermatology | DX: L40.9 Psoriasis, unspecified (principal); R55 Syncope and collapse; I48.91 Unspecified atrial fibrillation | CPT/HCPCS: 93227; 96900 ==

== ENCOUNTER 2019-12-03 02:01 | Outpatient (CLI) | payer MEDICARE, SELFPAY | END 2019-12-03 02:21 | PROVIDERS: PCP Family Medicine; Visit Provider Dermatology | DX: L40.9 Psoriasis, unspecified (principal) | CPT/HCPCS: 96900 ==

== ENCOUNTER 2019-12-06 02:09 | Outpatient (CLI) | payer MEDICARE, SELFPAY | END 2019-12-06 02:29 | PROVIDERS: PCP Family Medicine; Visit Provider Dermatology | DX: L40.9 Psoriasis, unspecified (principal) | CPT/HCPCS: 96900 ==

== ENCOUNTER 2019-12-08 02:49 | Outpatient (CLI) | payer MEDICARE, SELFPAY | END 2019-12-08 03:09 | PROVIDERS: PCP Family Medicine; Visit Provider Dermatology | DX: L40.9 Psoriasis, unspecified (principal) | CPT/HCPCS: 96900 ==

== ENCOUNTER 2019-12-10 00:44 | Outpatient (CLI) | payer MEDICARE, SELFPAY | END 2019-12-10 01:04 | PROVIDERS: PCP Family Medicine; Visit Provider Dermatology | DX: L40.9 Psoriasis, unspecified (principal) | CPT/HCPCS: 96900 ==

== ENCOUNTER 2019-12-13 02:01 | Outpatient (CLI) | payer MEDICARE, SELFPAY | END 2019-12-13 02:21 | PROVIDERS: PCP Family Medicine; Visit Provider Dermatology | DX: L40.9 Psoriasis, unspecified (principal) | CPT/HCPCS: 96900 ==

== ENCOUNTER 2019-12-15 04:14 | Outpatient (CLI) | payer MEDICARE, SELFPAY | END 2019-12-15 04:34 | PROVIDERS: PCP Family Medicine; Visit Provider Dermatology | DX: L40.9 Psoriasis, unspecified (principal) | CPT/HCPCS: 96900 ==

== ENCOUNTER 2019-12-17 10:10 | Outpatient (CLI) | payer MEDICARE, SELFPAY | END 2019-12-17 10:30 | PROVIDERS: PCP Family Medicine; Visit Provider Dermatology | DX: C67.9 Malignant neoplasm of bladder, unspecified (principal) | CPT/HCPCS: 52000; 99213 ==

== ENCOUNTER 2019-12-17 13:19 | Outpatient (REF) | payer MEDICARE, SELFPAY ==
--- NOTE | 2019-12-17 13:00 | PAPNONF_PTH ---
PATIENT: Rocky Booker LOC: [facility] U#:[id number] AGE/SX: 84/M ROOM: RE12/17/[address]: Garth Bean MD : 1935 BED: DIS: 12/17/2019 SPEC #: [id number] RECD: 12/17/19 16:30 STATUS: HAILEY REQ #: [id number] ISABEL: 12/17/19 13:[address]: Garth Bean DEPT: [facility] Cytology RECD BY: Ivana Cummings ENTERED: 12/17/19 16:30 SP TYPE: BRUNILDA MULLEN DR: Jeremy Ramírez MD Tissues: 1 - BODY FLUID CYTO(SPUTUM/URINE)[facility] Procedures: BODY FLUID CYTO(URINE/SPUTUM) Comments: [id number] (TOTAL VOLUME = 70 ml's) (35 ml's URINE & 35 ml's CYTOLYT ADDED IN 2 CONTAINERS)
== END 2019-12-17 13:39 ==
LOC: LBN 13:19
PROVIDERS: PCP Family Medicine; Visit Provider Urology
DX: C67.1 Malignant neoplasm of dome of bladder (principal); R82.89 Other abnormal findings on cytological and histological examination of urine
CPT/HCPCS: 88104

== ENCOUNTER 2019-12-22 02:59 | Outpatient (CLI) | payer MEDICARE, SELFPAY | END 2019-12-22 03:19 | PROVIDERS: PCP Family Medicine; Visit Provider Dermatology | DX: L40.9 Psoriasis, unspecified (principal) | CPT/HCPCS: 96900 ==

== ENCOUNTER → 2020-03-31 09:55 | Outpatient (BNVA) | payer MEDICARE, SELFPAY | PROVIDERS: PCP Family Medicine; Referring Provider Family Medicine; Visit Provider Urology | DX: C67.9 Malignant neoplasm of bladder, unspecified (principal) | CPT/HCPCS: 52000; 99212 ==

== ENCOUNTER → 2020-05-15 09:02 | Outpatient (BNVA) | payer MEDICARE, SELFPAY | PROVIDERS: PCP Family Medicine; Visit Provider Internal Medicine Cardiovascular Disease | DX: I48.20 Chronic atrial fibrillation, unspecified (principal); I10 Essential (primary) hypertension | CPT/HCPCS: 99203; 99214 ==

== ENCOUNTER → 2020-07-31 08:36 | Outpatient (BNVA) | payer MEDICARE, SELFPAY | PROVIDERS: PCP Family Medicine; Referring Provider Family Medicine; Visit Provider Urology | DX: C67.9 Malignant neoplasm of bladder, unspecified (principal); I10 Essential (primary) hypertension | CPT/HCPCS: 52000; 99213 ==

== ENCOUNTER 2020-07-31 09:08 | Outpatient (REF) | payer MEDICARE, SELFPAY ==
--- NOTE | 2020-07-31 09:00 | PAPNONF_PTH ---
PATIENT: Rocky Booker LOC: [facility] U#:[id number] AGE/SX: 84/M ROOM: RE07/31/[address]: Garth Bean MD : 1935 BED: DIS: 07/31/2020 SPEC #: [id number] RECD: 07/31/20 13:05 STATUS: HAILEY REJeancarlos #: [id number] ISABEL: 07/31/20 09:[address]: Garth Bean DEPT: [facility] Cytology RECD BY: Ivana Cummings ENTERED: 07/31/20 13:05 SP TYPE: PAPGIANA MULLEN DR: Jeremy Ramírez MD Tissues: 1 - BODY FLUID CYTO(SPUTUM/URINE)[facility] Procedures: BODY FLUID CYTO(URINE/SPUTUM) Comments: [id number] (TOTAL VOLUME = 100 ml's) (50 ml's URINE & 50 ml's CYTOLYT ADDED)
== END 2020-07-31 09:28 ==
LOC: LBN 09:08
PROVIDERS: PCP Family Medicine; Visit Provider Urology
DX: C67.9 Malignant neoplasm of bladder, unspecified (principal)
CPT/HCPCS: 88104

== ENCOUNTER 2020-10-18 07:01 | Outpatient (CLI) | payer MEDICARE, SELFPAY | END 2020-10-18 07:21 | PROVIDERS: PCP Family Medicine; Visit Provider Dermatology | DX: L40.9 Psoriasis, unspecified (principal) | CPT/HCPCS: 96900 ==

== ENCOUNTER 2020-10-20 06:25 | Outpatient (CLI) | payer MEDICARE, SELFPAY | END 2020-10-20 06:45 | PROVIDERS: PCP Family Medicine; Visit Provider Dermatology | DX: L40.9 Psoriasis, unspecified (principal) | CPT/HCPCS: 96900 ==

== ENCOUNTER 2020-10-23 06:56 | Outpatient (CLI) | payer MEDICARE, SELFPAY | END 2020-10-23 07:16 | PROVIDERS: PCP Family Medicine; Visit Provider Dermatology | DX: L40.9 Psoriasis, unspecified (principal) | CPT/HCPCS: 96900 ==

== ENCOUNTER 2020-10-25 07:01 | Outpatient (CLI) | payer MEDICARE, SELFPAY | END 2020-10-25 07:21 | PROVIDERS: PCP Family Medicine; Visit Provider Dermatology | DX: L40.9 Psoriasis, unspecified (principal) | CPT/HCPCS: 96900 ==

== ENCOUNTER 2020-10-27 07:00 | Outpatient (CLI) | payer MEDICARE, SELFPAY | END 2020-10-27 07:20 | PROVIDERS: PCP Family Medicine; Visit Provider Dermatology | DX: L40.9 Psoriasis, unspecified (principal) | CPT/HCPCS: 96900 ==

== ENCOUNTER 2020-10-30 06:55 | Outpatient (CLI) | payer MEDICARE, SELFPAY | END 2020-10-30 07:15 | PROVIDERS: PCP Family Medicine; Visit Provider Dermatology | DX: L40.9 Psoriasis, unspecified (principal) | CPT/HCPCS: 96900 ==

== ENCOUNTER 2020-11-01 06:56 | Outpatient (CLI) | payer MEDICARE, SELFPAY | END 2020-11-01 07:16 | PROVIDERS: PCP Family Medicine; Visit Provider Dermatology | DX: L40.9 Psoriasis, unspecified (principal) | CPT/HCPCS: 96900 ==

== ENCOUNTER 2020-11-03 09:41 | Outpatient (CLI) | payer MEDICARE, SELFPAY | END 2020-11-03 10:01 | PROVIDERS: PCP Family Medicine; Visit Provider Dermatology | DX: L40.9 Psoriasis, unspecified (principal) | CPT/HCPCS: 96900 ==

== ENCOUNTER 2020-11-06 16:01 | Outpatient (CLI) | payer MEDICARE, SELFPAY | END 2020-11-06 16:21 | PROVIDERS: PCP Family Medicine; Visit Provider Dermatology | DX: L40.9 Psoriasis, unspecified (principal) | CPT/HCPCS: 96900 ==

== ENCOUNTER 2020-11-08 07:06 | Outpatient (CLI) | payer MEDICARE, SELFPAY | END 2020-11-08 07:07 | disposition home or self-care (01) | LOC: PUVA 07:08 | PROVIDERS: PCP Family Medicine; Visit Provider Dermatology | DX: L40.9 Psoriasis, unspecified (principal) | CPT/HCPCS: 96900 ==

== ENCOUNTER 2020-11-10 02:39 | Outpatient (CLI) | payer MEDICARE, SELFPAY | END 2020-11-10 02:40 | disposition home or self-care (01) | LOC: PUVA 02:40 | PROVIDERS: PCP Family Medicine; Visit Provider Dermatology | DX: L40.9 Psoriasis, unspecified (principal) | CPT/HCPCS: 96900 ==

== ENCOUNTER 2020-11-13 21:49 | Outpatient (CLI) | payer MEDICARE, SELFPAY | END 2020-11-13 21:50 | disposition home or self-care (01) | PROVIDERS: PCP Family Medicine; Visit Provider Dermatology | DX: L40.9 Psoriasis, unspecified (principal) | CPT/HCPCS: 96900 ==

== ENCOUNTER 2020-11-15 07:11 | Outpatient (CLI) | payer MEDICARE, SELFPAY | END 2020-11-15 07:12 | disposition home or self-care (01) | LOC: PUVA 11-17 07:11 | PROVIDERS: PCP Family Medicine; Visit Provider Dermatology | DX: L40.9 Psoriasis, unspecified (principal) | CPT/HCPCS: 96900 ==

== ENCOUNTER 2020-11-17 06:25 | Outpatient (CLI) | payer MEDICARE, SELFPAY | END 2020-11-17 06:26 | disposition home or self-care (01) | LOC: PUVA 06:27 | PROVIDERS: PCP Family Medicine; Visit Provider Dermatology | DX: L40.9 Psoriasis, unspecified (principal) | CPT/HCPCS: 96900 ==

== ENCOUNTER 2020-11-20 07:30 | Outpatient (CLI) | payer MEDICARE, SELFPAY | END 2020-11-20 07:31 | disposition home or self-care (01) | LOC: PUVA 11-22 11:02 | PROVIDERS: PCP Family Medicine; Visit Provider Dermatology | DX: L40.9 Psoriasis, unspecified (principal) | CPT/HCPCS: 96900 ==

== ENCOUNTER 2020-11-22 11:02 | Outpatient (CLI) | payer MEDICARE, SELFPAY | END 2020-11-22 11:03 | disposition home or self-care (01) | LOC: PUVA 11:02 | PROVIDERS: PCP Family Medicine; Visit Provider Dermatology | DX: L40.9 Psoriasis, unspecified (principal) | CPT/HCPCS: 96900 ==

== ENCOUNTER 2020-11-24 07:07 | Outpatient (CLI) | payer MEDICARE, SELFPAY | END 2020-11-24 07:08 | disposition home or self-care (01) | LOC: PUVA 07:08 | PROVIDERS: PCP Family Medicine; Visit Provider Dermatology | DX: L40.9 Psoriasis, unspecified (principal) | CPT/HCPCS: 96900 ==

== ENCOUNTER 2020-11-27 07:07 | Outpatient (CLI) | payer MEDICARE, SELFPAY | END 2020-11-27 07:08 | disposition home or self-care (01) | LOC: PUVA 07:07 | PROVIDERS: PCP Family Medicine; Visit Provider Dermatology | DX: L40.9 Psoriasis, unspecified (principal) | CPT/HCPCS: 96900 ==

== ENCOUNTER 2020-11-29 07:04 | Outpatient (CLI) | payer MEDICARE, SELFPAY | END 2020-11-29 07:05 | disposition home or self-care (01) | LOC: PUVA 07:04 | PROVIDERS: PCP Family Medicine; Visit Provider Dermatology | DX: L40.9 Psoriasis, unspecified (principal) | CPT/HCPCS: 96900 ==

== ENCOUNTER 2020-12-04 04:55 | Outpatient (CLI) | payer MEDICARE, SELFPAY | END 2020-12-04 04:56 | disposition home or self-care (01) | LOC: PUVA 04:55 | PROVIDERS: PCP Family Medicine; Visit Provider Dermatology | DX: L40.9 Psoriasis, unspecified (principal) | CPT/HCPCS: 96900 ==

== ENCOUNTER 2020-12-08 01:46 | Outpatient (CLI) | payer MEDICARE, SELFPAY | END 2020-12-08 01:47 | disposition home or self-care (01) | LOC: PUVA 01:46 | PROVIDERS: PCP Family Medicine; Visit Provider Dermatology | DX: L40.9 Psoriasis, unspecified (principal) | CPT/HCPCS: 96900 ==

== ENCOUNTER 2020-12-11 11:45 | Outpatient (CLI) | payer MEDICARE, SELFPAY | END 2020-12-11 11:46 | disposition home or self-care (01) | LOC: PUVA 12-25 11:45 | PROVIDERS: PCP Family Medicine; Visit Provider Dermatology | DX: L40.9 Psoriasis, unspecified (principal) | CPT/HCPCS: 96900 ==

== ENCOUNTER 2020-12-15 01:22 | Outpatient (CLI) | payer MEDICARE, SELFPAY | END 2020-12-15 01:23 | disposition home or self-care (01) | LOC: PUVA 01:22 | PROVIDERS: PCP Family Medicine; Visit Provider Dermatology | DX: L40.9 Psoriasis, unspecified (principal) | CPT/HCPCS: 96900 ==

== ENCOUNTER 2020-12-18 07:16 | Outpatient (CLI) | payer MEDICARE, SELFPAY | END 2020-12-18 07:17 | disposition home or self-care (01) | LOC: PUVA 07:16 | PROVIDERS: PCP Family Medicine; Visit Provider Dermatology | DX: L40.9 Psoriasis, unspecified (principal) | CPT/HCPCS: 96900 ==

== ENCOUNTER 2020-12-22 01:39 | Outpatient (CLI) | payer MEDICARE, SELFPAY | END 2020-12-22 01:40 | disposition home or self-care (01) | PROVIDERS: PCP Family Medicine; Visit Provider Dermatology | DX: L40.9 Psoriasis, unspecified (principal) | CPT/HCPCS: 96900 ==

== ENCOUNTER 2020-12-25 07:25 | Outpatient (CLI) | payer MEDICARE, SELFPAY | END 2020-12-25 07:26 | disposition home or self-care (01) | LOC: PUVA 07:25 | PROVIDERS: PCP Family Medicine; Visit Provider Dermatology | DX: L40.9 Psoriasis, unspecified (principal) | CPT/HCPCS: 96900 ==

== ENCOUNTER 2020-12-29 01:14 | Outpatient (CLI) | payer MEDICARE, SELFPAY | END 2020-12-29 01:15 | disposition home or self-care (01) | LOC: PUVA 01:15 | PROVIDERS: PCP Family Medicine; Visit Provider Dermatology | DX: L40.9 Psoriasis, unspecified (principal) | CPT/HCPCS: 96900 ==

== ENCOUNTER 2021-01-01 09:29 | Outpatient (CLI) | payer MEDICARE, SELFPAY | END 2021-01-01 09:30 | disposition home or self-care (01) | LOC: PUVA 09:30 | PROVIDERS: PCP Family Medicine; Visit Provider Dermatology | DX: L40.9 Psoriasis, unspecified (principal) | CPT/HCPCS: 96900 ==

== ENCOUNTER 2021-01-05 01:26 | Outpatient (CLI) | payer MEDICARE, SELFPAY | END 2021-01-05 01:27 | disposition home or self-care (01) | LOC: PUVA 01:26 | PROVIDERS: PCP Family Medicine; Visit Provider Dermatology | DX: L40.9 Psoriasis, unspecified (principal) | CPT/HCPCS: 96900 ==

== ENCOUNTER 2021-01-08 07:37 | Outpatient (CLI) | payer MEDICARE, SELFPAY | END 2021-01-08 07:38 | disposition home or self-care (01) | LOC: PUVA 07:38 | PROVIDERS: PCP Family Medicine; Visit Provider Dermatology | DX: L40.9 Psoriasis, unspecified (principal) | CPT/HCPCS: 96900 ==

== ENCOUNTER 2021-01-12 01:20 | Outpatient (CLI) | payer MEDICARE, SELFPAY | END 2021-01-12 01:21 | disposition home or self-care (01) | LOC: PUVA 01:20 | PROVIDERS: PCP Family Medicine; Visit Provider Dermatology | DX: L40.9 Psoriasis, unspecified (principal) | CPT/HCPCS: 96900 ==

== ENCOUNTER 2021-01-17 07:24 | Outpatient (CLI) | payer MEDICARE, SELFPAY | END 2021-01-17 07:25 | disposition home or self-care (01) | LOC: PUVA 07:24 | PROVIDERS: PCP Family Medicine; Visit Provider Dermatology | DX: L40.9 Psoriasis, unspecified (principal) | CPT/HCPCS: 96900 ==

== ENCOUNTER 2021-01-24 07:34 | Outpatient (CLI) | payer MEDICARE, SELFPAY | END 2021-01-24 07:35 | disposition home or self-care (01) | LOC: PUVA 07:34 | PROVIDERS: PCP Family Medicine; Visit Provider Dermatology | DX: L40.9 Psoriasis, unspecified (principal) | CPT/HCPCS: 96900 ==

== ENCOUNTER → 2021-01-30 08:39 | Outpatient (BNVA) | payer MEDICARE, SELFPAY | PROVIDERS: PCP Family Medicine; Referring Provider Family Medicine; Visit Provider Urology | DX: C67.9 Malignant neoplasm of bladder, unspecified (principal) | CPT/HCPCS: 52000; 99213 ==

== ENCOUNTER 2021-01-30 10:54 | Outpatient (REF) | payer MEDICARE, SELFPAY ==
--- NOTE | 2021-01-30 10:00 | PAPNONF_PTH ---
PATIENT: Rocky Booker LOC: [facility] U#:[id number] AGE/SX: 85/M ROOM: RE01/30/[address]: Garth Bean MD : 1935 BED: DIS: 01/30/2021 SPEC #: [id number] RECD: 01/30/21 13:04 STATUS: HAILEY RE #: [id number] ISABEL: 01/30/21 10:[address]: Garth Bean [facility] Cytology RECD BY: Ivana Cummings ENTERED: 01/30/21 13:04 SP TYPE: BRUNILDA MULLEN DR: Jeremy Ramírez MD Tissues: 1 - BODY FLUID CYTO(SPUTUM/URINE)[facility] Procedures: BODY FLUID CYTO(URINE/SPUTUM) Comments: [id number] (TOTAL VOLUME = 50 ml's) (50 ml's URINE & 50 ml's CYTOLYT ADDED)
== END 2021-01-30 10:55 | disposition home or self-care (01) ==
LOC: LBN 10:54
PROVIDERS: PCP Family Medicine; Visit Provider Urology
DX: R82.998 Other abnormal findings in urine (principal); Z85.51 Personal history of malignant neoplasm of bladder
CPT/HCPCS: 88104

== ENCOUNTER 2021-01-31 07:16 | Outpatient (CLI) | payer MEDICARE, SELFPAY | END 2021-01-31 07:17 | disposition home or self-care (01) | LOC: PUVA 07:16 | PROVIDERS: PCP Family Medicine; Visit Provider Dermatology | DX: L40.9 Psoriasis, unspecified (principal) | CPT/HCPCS: 96900 ==

== ENCOUNTER 2021-02-07 07:23 | Outpatient (CLI) | payer MEDICARE, SELFPAY | END 2021-02-07 07:24 | disposition home or self-care (01) | LOC: PUVA 07:24 | PROVIDERS: PCP Family Medicine; Visit Provider Dermatology | DX: L40.9 Psoriasis, unspecified (principal) | CPT/HCPCS: 96900 ==

== ENCOUNTER 2021-02-09 08:55 | Outpatient (CLI) | payer MEDICARE, SELFPAY ==
[2021-02-09 12:56] LABS: HCT 41.7 % (40.0-50.0); HGB 14.1 g/dL (13.5-17.5); MCH 32.3 pg (27.0-33.0); MCHC 33.8 % (32.0-36.0); MCV 95.6 fL (80-95); MPV 11.3 fL (8.0-11.0); Platelet Count 187 10^3/uL (130-400); RBC 4.36 10^6/uL (4.36-5.78); RDW 12.6 % (11.8-14.1); RDW-SD 44.7 fL; WBC 8.88 10^3/uL (4.4-10.8)
[2021-02-09 13:08] LABS: CREATININE 1.1 mg/dL (0.70-1.30); Potassium 4.6 mmol/L (3.5-5.1)
[2021-02-09 13:12] LABS: Hemoglobin A1C 5.6 % (<5.7)
== END 2021-02-09 08:56 | disposition home or self-care (01) ==
LOC: LOS 08:55
PROVIDERS: PCP Family Medicine; Referring Provider Family Medicine; Visit Provider Family Medicine
DX: I10 Essential (primary) hypertension (principal); R73.9 Hyperglycemia, unspecified
CPT/HCPCS: 36415; 85027; 82565; 83036; 84132

== ENCOUNTER 2021-02-14 08:04 | Outpatient (CLI) | payer MEDICARE, SELFPAY | END 2021-02-14 08:05 | disposition home or self-care (01) | LOC: PUVA 02-15 08:04 | PROVIDERS: PCP Family Medicine; Visit Provider Dermatology | DX: L40.9 Psoriasis, unspecified (principal) | CPT/HCPCS: 96900 ==

== ENCOUNTER 2021-02-21 07:23 | Outpatient (CLI) | payer MEDICARE, SELFPAY | END 2021-02-21 07:24 | disposition home or self-care (01) | LOC: PUVA 07:24 | PROVIDERS: PCP Family Medicine; Visit Provider Dermatology | DX: L40.9 Psoriasis, unspecified (principal) | CPT/HCPCS: 96900 ==

== ENCOUNTER → 2021-05-17 12:16 | Outpatient (BNVA) | payer MEDICARE, SELFPAY | PROVIDERS: PCP Family Medicine; Referring Provider Family Medicine; Visit Provider Internal Medicine Cardiovascular Disease | DX: I48.20 Chronic atrial fibrillation, unspecified (principal); I10 Essential (primary) hypertension; I30.9 Acute pericarditis, unspecified | CPT/HCPCS: 99214; 99213 ==

== ENCOUNTER 2021-07-30 00:39 | Outpatient (CLI) | payer MEDICARE, SELFPAY | END 2021-07-30 00:40 | disposition home or self-care (01) | LOC: PUVA 00:39 | PROVIDERS: PCP Family Medicine; Visit Provider Dermatology | DX: L40.9 Psoriasis, unspecified (principal) | CPT/HCPCS: 96900 ==

== ENCOUNTER 2021-08-01 06:22 | Outpatient (CLI) | payer MEDICARE, SELFPAY | END 2021-08-01 06:23 | LOC: PUVA 08-02 06:23 | PROVIDERS: PCP Family Medicine; Visit Provider Dermatology | DX: L40.9 Psoriasis, unspecified (principal) | CPT/HCPCS: 96900 ==

== ENCOUNTER 2021-08-03 01:04 | Outpatient (CLI) | payer MEDICARE, SELFPAY | END 2021-08-03 01:05 | disposition home or self-care (01) | LOC: PUVA 01:05 | PROVIDERS: PCP Family Medicine; Visit Provider Dermatology | DX: C67.9 Malignant neoplasm of bladder, unspecified (principal); L40.8 Other psoriasis | CPT/HCPCS: 52000; 81003; 96900 ==

== ENCOUNTER 2021-08-06 06:57 | Outpatient (CLI) | payer MEDICARE, SELFPAY | END 2021-08-06 06:58 | disposition home or self-care (01) | LOC: PUVA 06:57 | PROVIDERS: PCP Family Medicine; Visit Provider Dermatology | DX: L40.9 Psoriasis, unspecified (principal) | CPT/HCPCS: 96900 ==

== ENCOUNTER 2021-08-08 01:32 | Outpatient (CLI) | payer MEDICARE, SELFPAY | END 2021-08-08 01:33 | disposition home or self-care (01) | LOC: PUVA 01:33 | PROVIDERS: PCP Family Medicine; Visit Provider Dermatology | DX: L40.9 Psoriasis, unspecified (principal) | CPT/HCPCS: 96900 ==

== ENCOUNTER 2021-08-10 07:09 | Outpatient (CLI) | payer MEDICARE, SELFPAY | END 2021-08-10 07:10 | disposition home or self-care (01) | LOC: PUVA 07:10 | PROVIDERS: PCP Family Medicine; Visit Provider Dermatology | DX: L40.9 Psoriasis, unspecified (principal); C67.9 Malignant neoplasm of bladder, unspecified; R31.0 Gross hematuria | CPT/HCPCS: 81003; 96900; 99213 ==

== ENCOUNTER 2021-08-10 21:12 | Outpatient (REF) | payer MEDICARE, SELFPAY | END 2021-08-10 21:13 | disposition home or self-care (01) | LOC: LBN 21:12 | PROVIDERS: PCP Family Medicine; Visit Provider Urology | DX: N39.0 Urinary tract infection, site not specified (principal) | CPT/HCPCS: 87086 ==

== ENCOUNTER 2021-08-13 01:30 | Outpatient (CLI) | payer MEDICARE, SELFPAY | END 2021-08-13 01:31 | disposition home or self-care (01) | LOC: PUVA 01:31 | PROVIDERS: PCP Family Medicine; Visit Provider Dermatology | DX: L40.9 Psoriasis, unspecified (principal) | CPT/HCPCS: 96900 ==

== ENCOUNTER 2021-08-15 07:03 | Outpatient (CLI) | payer MEDICARE, SELFPAY | END 2021-08-15 07:04 | disposition home or self-care (01) | LOC: PUVA 07:03 | PROVIDERS: PCP Family Medicine; Visit Provider Dermatology | DX: L40.9 Psoriasis, unspecified (principal) | CPT/HCPCS: 96900 ==

== ENCOUNTER 2021-08-17 07:06 | Outpatient (CLI) | payer MEDICARE, SELFPAY | END 2021-08-17 07:07 | disposition home or self-care (01) | LOC: PUVA 07:06 | PROVIDERS: PCP Family Medicine; Visit Provider Dermatology | DX: L40.9 Psoriasis, unspecified (principal) | CPT/HCPCS: 96900 ==

== ENCOUNTER 2021-08-20 07:11 | Outpatient (CLI) | payer MEDICARE, SELFPAY | END 2021-08-20 07:12 | disposition home or self-care (01) | LOC: PUVA 07:11 | PROVIDERS: PCP Family Medicine; Visit Provider Dermatology | DX: L40.9 Psoriasis, unspecified (principal) | CPT/HCPCS: 96900 ==

== ENCOUNTER 2021-08-22 04:04 | Outpatient (CLI) | payer MEDICARE, SELFPAY | END 2021-08-22 04:05 | disposition home or self-care (01) | LOC: PUVA 04:05 | PROVIDERS: PCP Family Medicine; Visit Provider Dermatology | DX: L40.9 Psoriasis, unspecified (principal) | CPT/HCPCS: 96900 ==

== ENCOUNTER 2021-08-24 07:04 | Outpatient (CLI) | payer MEDICARE, SELFPAY | END 2021-08-24 07:05 | disposition home or self-care (01) | LOC: PUVA 07:04 | PROVIDERS: PCP Family Medicine; Visit Provider Dermatology | DX: L40.9 Psoriasis, unspecified (principal) | CPT/HCPCS: 96900 ==

== ENCOUNTER 2021-08-27 02:00 | Outpatient (CLI) | payer MEDICARE, SELFPAY | END 2021-08-27 02:01 | disposition home or self-care (01) | LOC: PUVA 02:01 | PROVIDERS: PCP Family Medicine; Visit Provider Dermatology | DX: L40.9 Psoriasis, unspecified (principal) | CPT/HCPCS: 96900 ==

== ENCOUNTER 2021-08-29 07:00 | Outpatient (CLI) | payer MEDICARE, SELFPAY | END 2021-08-29 07:01 | disposition home or self-care (01) | LOC: PUVA 07:00 | PROVIDERS: PCP Family Medicine; Visit Provider Dermatology | DX: L40.9 Psoriasis, unspecified (principal) | CPT/HCPCS: 96900 ==

== ENCOUNTER 2021-09-03 03:29 | Outpatient (CLI) | payer MEDICARE, SELFPAY | END 2021-09-03 03:30 | disposition home or self-care (01) | LOC: PUVA 03:30 | PROVIDERS: PCP Family Medicine; Visit Provider Dermatology | DX: L40.9 Psoriasis, unspecified (principal) | CPT/HCPCS: 96900 ==

== ENCOUNTER → 2021-09-04 11:43 | Outpatient (BNVA) | payer MEDICARE, SELFPAY | PROVIDERS: PCP Family Medicine; Referring Provider Family Medicine; Visit Provider Urology | DX: R31.0 Gross hematuria (principal); C67.9 Malignant neoplasm of bladder, unspecified; I48.91 Unspecified atrial fibrillation; Z79.01 Long term (current) use of anticoagulants | CPT/HCPCS: 81003; 99213 ==

== ENCOUNTER 2021-09-05 02:57 | Outpatient (CLI) | payer MEDICARE, SELFPAY | END 2021-09-05 02:58 | disposition home or self-care (01) | LOC: PUVA 02:57 | PROVIDERS: PCP Family Medicine; Visit Provider Dermatology | DX: L40.9 Psoriasis, unspecified (principal) | CPT/HCPCS: 96900 ==

== ENCOUNTER 2021-09-07 04:23 | Outpatient (CLI) | payer MEDICARE, SELFPAY | END 2021-09-07 04:24 | disposition home or self-care (01) | LOC: PUVA 04:23 | PROVIDERS: PCP Family Medicine; Visit Provider Dermatology | DX: L40.9 Psoriasis, unspecified (principal) | CPT/HCPCS: 96900 ==

== ENCOUNTER 2021-09-10 02:38 | Outpatient (CLI) | payer MEDICARE, SELFPAY | END 2021-09-10 02:39 | disposition home or self-care (01) | LOC: PUVA 02:40 | PROVIDERS: PCP Family Medicine; Visit Provider Dermatology | DX: L40.9 Psoriasis, unspecified (principal) | CPT/HCPCS: 96900 ==

== ENCOUNTER 2021-09-12 07:09 | Outpatient (CLI) | payer MEDICARE, SELFPAY | END 2021-09-12 07:10 | disposition home or self-care (01) | LOC: PUVA 07:10 | PROVIDERS: PCP Family Medicine; Visit Provider Dermatology | DX: L40.9 Psoriasis, unspecified (principal) | CPT/HCPCS: 96900 ==

== ENCOUNTER 2021-09-14 07:07 | Outpatient (CLI) | payer MEDICARE, SELFPAY | END 2021-09-14 07:08 | disposition home or self-care (01) | LOC: PUVA 07:07 | PROVIDERS: PCP Family Medicine; Visit Provider Dermatology | DX: L40.9 Psoriasis, unspecified (principal) | CPT/HCPCS: 96900 ==

== ENCOUNTER 2021-09-17 07:02 | Outpatient (CLI) | payer MEDICARE, SELFPAY | END 2021-09-17 07:03 | disposition home or self-care (01) | LOC: PUVA 09-19 07:02 | PROVIDERS: PCP Family Medicine; Visit Provider Dermatology | DX: L40.9 Psoriasis, unspecified (principal) | CPT/HCPCS: 96900 ==

== ENCOUNTER 2021-09-17 07:05 | Outpatient (CLI) | payer MEDICARE, SELFPAY | END 2021-09-17 07:06 | disposition home or self-care (01) | LOC: PUVA 09-19 10:23 | PROVIDERS: PCP Family Medicine; Visit Provider Dermatology | DX: L40.8 Other psoriasis (principal) | CPT/HCPCS: 96900 ==

== ENCOUNTER → 2021-09-18 09:51 | Outpatient (BNVA) | payer MEDICARE, SELFPAY | PROVIDERS: PCP Family Medicine; Visit Provider Urology | DX: R31.0 Gross hematuria (principal); Z79.01 Long term (current) use of anticoagulants; I48.91 Unspecified atrial fibrillation | CPT/HCPCS: 81003; 99213 ==

== ENCOUNTER 2021-09-21 06:57 | Outpatient (CLI) | payer MEDICARE, SELFPAY | END 2021-09-21 06:58 | disposition home or self-care (01) | LOC: PUVA 06:57 | PROVIDERS: PCP Family Medicine; Visit Provider Dermatology | DX: L40.9 Psoriasis, unspecified (principal) | CPT/HCPCS: 96900 ==

== ENCOUNTER 2021-09-24 07:12 | Outpatient (CLI) | payer MEDICARE, SELFPAY | END 2021-09-24 07:13 | disposition home or self-care (01) | LOC: PUVA 07:12 | PROVIDERS: PCP Family Medicine; Visit Provider Dermatology | DX: L40.9 Psoriasis, unspecified (principal) | CPT/HCPCS: 96900 ==

== ENCOUNTER 2021-09-26 07:15 | Outpatient (CLI) | payer MEDICARE, SELFPAY | END 2021-09-26 07:16 | disposition home or self-care (01) | LOC: PUVA 07:15 | PROVIDERS: PCP Family Medicine; Visit Provider Dermatology | DX: L40.9 Psoriasis, unspecified (principal) | CPT/HCPCS: 96900 ==

== ENCOUNTER 2021-10-01 07:11 | Outpatient (CLI) | payer MEDICARE, SELFPAY | END 2021-10-01 07:12 | disposition home or self-care (01) | LOC: PUVA 07:11 | PROVIDERS: PCP Family Medicine; Visit Provider Dermatology | DX: L40.9 Psoriasis, unspecified (principal) | CPT/HCPCS: 96900 ==

== ENCOUNTER 2021-10-03 07:12 | Outpatient (CLI) | payer MEDICARE, SELFPAY | END 2021-10-03 07:13 | disposition home or self-care (01) | LOC: PUVA 07:13 | PROVIDERS: PCP Family Medicine; Visit Provider Dermatology | DX: L40.9 Psoriasis, unspecified (principal) | CPT/HCPCS: 96900 ==

== ENCOUNTER 2021-10-08 07:09 | Outpatient (CLI) | payer MEDICARE, SELFPAY | END 2021-10-08 07:10 | disposition home or self-care (01) | LOC: PUVA 07:09 | PROVIDERS: PCP Family Medicine; Visit Provider Dermatology | DX: L40.9 Psoriasis, unspecified (principal) | CPT/HCPCS: 96900 ==

== ENCOUNTER 2021-10-10 07:06 | Outpatient (CLI) | payer MEDICARE, SELFPAY | END 2021-10-10 07:07 | disposition home or self-care (01) | LOC: PUVA 07:07 | PROVIDERS: PCP Family Medicine; Visit Provider Dermatology | DX: L40.9 Psoriasis, unspecified (principal) | CPT/HCPCS: 96900 ==

== ENCOUNTER 2021-10-12 07:20 | Outpatient (CLI) | payer MEDICARE, SELFPAY | END 2021-10-12 07:21 | disposition home or self-care (01) | LOC: PUVA 07:21 | PROVIDERS: PCP Family Medicine; Visit Provider Dermatology | DX: L40.9 Psoriasis, unspecified (principal) | CPT/HCPCS: 96900 ==

== ENCOUNTER 2021-10-15 07:16 | Outpatient (CLI) | payer MEDICARE, SELFPAY | END 2021-10-15 07:17 | disposition home or self-care (01) | LOC: PUVA 07:17 | PROVIDERS: PCP Family Medicine; Visit Provider Dermatology | DX: L40.9 Psoriasis, unspecified (principal) | CPT/HCPCS: 96900 ==

== ENCOUNTER 2021-10-17 07:09 | Outpatient (CLI) | payer MEDICARE, SELFPAY | END 2021-10-17 07:10 | disposition home or self-care (01) | LOC: PUVA 10-19 07:09 | PROVIDERS: PCP Family Medicine; Visit Provider Dermatology | DX: L40.9 Psoriasis, unspecified (principal) | CPT/HCPCS: 96900 ==

== ENCOUNTER 2021-10-19 07:08 | Outpatient (CLI) | payer MEDICARE, SELFPAY | END 2021-10-19 07:09 | disposition home or self-care (01) | LOC: PUVA 07:08 | PROVIDERS: PCP Family Medicine; Visit Provider Dermatology | DX: L40.9 Psoriasis, unspecified (principal) | CPT/HCPCS: 96900 ==

== ENCOUNTER 2021-10-24 07:06 | Outpatient (CLI) | payer MEDICARE, SELFPAY | END 2021-10-24 07:07 | disposition home or self-care (01) | LOC: PUVA 07:06 | PROVIDERS: PCP Family Medicine; Visit Provider Dermatology | DX: L40.9 Psoriasis, unspecified (principal) | CPT/HCPCS: 96900 ==

== ENCOUNTER 2021-10-31 07:40 | Outpatient (CLI) | payer MEDICARE, SELFPAY | END 2021-10-31 07:41 | disposition home or self-care (01) | PROVIDERS: PCP Family Medicine; Visit Provider Dermatology | DX: L40.9 Psoriasis, unspecified (principal) | CPT/HCPCS: 96900 ==

== ENCOUNTER 2021-11-07 06:57 | Outpatient (CLI) | payer MEDICARE, SELFPAY | END 2021-11-07 06:58 | disposition home or self-care (01) | LOC: PUVA 06:57 | PROVIDERS: PCP Family Medicine; Visit Provider Dermatology | DX: L40.9 Psoriasis, unspecified (principal) | CPT/HCPCS: 96900 ==

== ENCOUNTER 2021-11-14 07:09 | Outpatient (CLI) | payer MEDICARE, SELFPAY | END 2021-11-14 07:10 | disposition home or self-care (01) | LOC: PUVA 07:09 | PROVIDERS: PCP Family Medicine; Visit Provider Dermatology | DX: L40.9 Psoriasis, unspecified (principal) | CPT/HCPCS: 96900 ==

== ENCOUNTER 2021-11-20 07:11 | Outpatient (CLI) | payer MEDICARE, SELFPAY | END 2021-11-20 07:12 | disposition home or self-care (01) | LOC: PUVA 07:12 | PROVIDERS: PCP Family Medicine; Visit Provider Dermatology | DX: L40.9 Psoriasis, unspecified (principal) | CPT/HCPCS: 96900 ==

== ENCOUNTER 2021-11-28 06:59 | Outpatient (CLI) | payer MEDICARE, SELFPAY | END 2021-11-28 07:00 | disposition home or self-care (01) | LOC: PUVA 07:00 | PROVIDERS: PCP Family Medicine; Visit Provider Dermatology | DX: L40.9 Psoriasis, unspecified (principal) | CPT/HCPCS: 96900 ==

== ENCOUNTER 2021-12-05 06:58 | Outpatient (CLI) | payer MEDICARE, SELFPAY | END 2021-12-05 06:59 | disposition home or self-care (01) | LOC: PUVA 06:59 | PROVIDERS: PCP Family Medicine; Visit Provider Dermatology | DX: L40.9 Psoriasis, unspecified (principal) | CPT/HCPCS: 96900 ==

== ENCOUNTER 2021-12-12 07:01 | Outpatient (CLI) | payer MEDICARE, SELFPAY | END 2021-12-12 07:02 | disposition home or self-care (01) | LOC: PUVA 07:01 | PROVIDERS: PCP Family Medicine; Visit Provider Dermatology | DX: L40.9 Psoriasis, unspecified (principal) | CPT/HCPCS: 96900 ==

== ENCOUNTER 2021-12-19 07:07 | Outpatient (CLI) | payer MEDICARE, SELFPAY | END 2021-12-19 07:08 | disposition home or self-care (01) | LOC: PUVA 07:07 | PROVIDERS: PCP Family Medicine; Visit Provider Dermatology | DX: L40.9 Psoriasis, unspecified (principal) | CPT/HCPCS: 96900 ==

== ENCOUNTER 2021-12-26 06:57 | Outpatient (CLI) | payer MEDICARE, SELFPAY | END 2021-12-26 06:58 | disposition home or self-care (01) | LOC: PUVA 06:57 | PROVIDERS: PCP Family Medicine; Visit Provider Dermatology | DX: L40.9 Psoriasis, unspecified (principal) | CPT/HCPCS: 96900 ==

== ENCOUNTER 2022-01-02 06:56 | Outpatient (CLI) | payer MEDICARE, SELFPAY | END 2022-01-02 06:57 | disposition home or self-care (01) | LOC: PUVA 06:56 | PROVIDERS: PCP Family Medicine; Visit Provider Dermatology | DX: L40.9 Psoriasis, unspecified (principal) | CPT/HCPCS: 96900 ==

== ENCOUNTER 2022-01-09 06:51 | Outpatient (CLI) | payer MEDICARE, SELFPAY | END 2022-01-09 06:52 | disposition home or self-care (01) | LOC: PUVA 06:54 | PROVIDERS: PCP Family Medicine; Visit Provider Dermatology | DX: L40.9 Psoriasis, unspecified (principal) | CPT/HCPCS: 96900 ==

== ENCOUNTER 2022-01-16 06:52 | Outpatient (CLI) | payer MEDICARE, SELFPAY | END 2022-01-16 06:53 | disposition home or self-care (01) | LOC: PUVA 06:54 | PROVIDERS: PCP Family Medicine; Visit Provider Dermatology | DX: L40.9 Psoriasis, unspecified (principal) | CPT/HCPCS: 96900 ==

== ENCOUNTER → 2022-02-01 08:36 | Outpatient (BNVA) | payer MEDICARE, SELFPAY | PROVIDERS: PCP Family Medicine; Visit Provider Urology | DX: C67.9 Malignant neoplasm of bladder, unspecified (principal) | CPT/HCPCS: 81003; 99214 ==

== ENCOUNTER 2022-02-12 09:58 | Outpatient (CLI) | payer MEDICARE, SELFPAY ==
[2022-02-12 12:30] LABS: HCT 42.2 % (40.0-50.0); MCHC 33.2 % (32.0-36.0); MCV 96 fL (80-95); MPV 12.8 fL (8.0-11.0); Platelet Count 203 10^3/uL (130-400); RBC 4.38 10^6/uL (4.36-5.78); RDW-SD 46.6 fL; WBC 10.06 10^3/uL (4.4-10.8)
[2022-02-12 12:39] LABS: Potassium 4.6 mmol/L (3.5-5.1)
== END 2022-02-12 09:59 | disposition home or self-care (01) ==
LOC: LOS 09:58
PROVIDERS: PCP Family Medicine; Referring Provider Family Medicine; Visit Provider Family Medicine
DX: I10 Essential (primary) hypertension (principal); R53.83 Other fatigue
CPT/HCPCS: 36415; 85027; 82565; 84132

== ENCOUNTER → 2022-04-12 08:39 | Outpatient (BNVA) | payer MEDICARE, SELFPAY | PROVIDERS: PCP Family Medicine; Referring Provider Family Medicine; Visit Provider Urology | DX: C67.9 Malignant neoplasm of bladder, unspecified (principal); R97.20 Elevated prostate specific antigen [PSA] | CPT/HCPCS: 81003; 99213 ==

== ENCOUNTER 2022-04-12 10:55 | Outpatient (REF) | payer MEDICARE, SELFPAY ==
--- NOTE | 2022-04-12 09:20 | PAPNONF_PTH ---
PATIENT: Rocky Booker LOC: [facility] U#:[id number] AGE/SX: 86/M ROOM: RE04/12/[address]: Garth Bean MD : 1935 BED: DIS: 04/12/2022 SPEC #: [id number] RECD: 04/12/22 11:07 STATUS: HAILEY RE #: [id number] ISABEL: 04/12/22 09:[address]: Garth Bean DEPT: [facility] Cytology RECD BY: Laura Forte ENTERED: 04/12/22 11:10 SP TYPE: BRUNILDA MULLEN DR: Jeremy Ramírez MD Tissues: 1 - BODY FLUID CYTO(SPUTUM/URINE)[facility] Procedures: BODY FLUID CYTO(URINE/SPUTUM) Comments: [id number] (TOTAL VOLUME URINE = 80cc) (REFRIGERATED) (80 cc CYTOLYT ADDED, 160 cc VOLUME SENT IN 2 CONTAINERS)
== END 2022-04-12 10:56 | disposition home or self-care (01) ==
LOC: LBN 10:55
PROVIDERS: PCP Family Medicine; Visit Provider Urology
DX: Z85.51 Personal history of malignant neoplasm of bladder (principal); R82.89 Other abnormal findings on cytological and histological examination of urine
CPT/HCPCS: 88104

== ENCOUNTER 2022-05-16 10:47 | Outpatient (CLI) | payer MEDICARE, SELFPAY ==
--- NOTE | 2022-05-16 10:45 | RT.EKG_ITS ---
APPROVED REPORT Exam: Resting ECG Reason for Exam: afib Patient Location: O HR:56 bpm ECG Measurements Heart Rate 56 AXIS [place] [id number] P [id number] QRSd 137 QRS -27 QT 429 T 163 QTc 415 Conclusion Atrial fibrillation...? atrial activity Ventricular premature complex...V complex w/ short R-R interval Right bundle branch block...QRSd>120, terminal axis(90,270) LAFB LVH with IVCD and secondary repol abnrm...multi-criteria, wQRSd, abnr ST-T
== END 2022-05-16 10:48 | disposition home or self-care (01) ==
LOC: DI.CARD 10:48
PROVIDERS: PCP Family Medicine; Visit Provider Internal Medicine Cardiovascular Disease
DX: I48.91 Unspecified atrial fibrillation (principal); R94.31 Abnormal electrocardiogram [ECG] [EKG]; I49.3 Ventricular premature depolarization; I45.19 Other right bundle-branch block
CPT/HCPCS: 93010

== ENCOUNTER → 2022-05-16 12:35 | Outpatient (BNVA) | payer MEDICARE, SELFPAY | PROVIDERS: PCP Family Medicine; Visit Provider Internal Medicine Cardiovascular Disease | DX: I44.4 Left anterior fascicular block (principal); I45.10 Unspecified right bundle-branch block; I48.91 Unspecified atrial fibrillation; I10 Essential (primary) hypertension | CPT/HCPCS: 93005; 99213 ==

== ENCOUNTER → 2022-08-09 08:43 | Outpatient (BNVA) | payer MEDICARE, SELFPAY | PROVIDERS: PCP Family Medicine; Referring Provider Family Medicine; Visit Provider Urology | DX: C67.9 Malignant neoplasm of bladder, unspecified (principal); R97.20 Elevated prostate specific antigen [PSA] | CPT/HCPCS: 81003; 99214 ==

== ENCOUNTER 2022-08-09 09:37 | Outpatient (REF) | payer MEDICARE, SELFPAY ==
--- NOTE | 2022-08-09 09:10 | PAPNONF_PTH ---
PATIENT: Rocky Booker LOC: [facility] U#:[id number] AGE/SX: 86/M ROOM: RE08/09/[address]: Garth Bean MD : 1935 BED: DIS: 08/09/2022 SPEC #: [id number] RECD: 08/09/22 12:08 STATUS: HAILEY REJeancarlos #: [id number] ISABEL: 08/09/22 09:[address]: Garth Bean DEPT: [facility] Cytology RECD BY: Laura Forte Tissues: 1 - BODY FLUID CYTO(SPUTUM/URINE)[facility] Procedures: BODY FLUID CYTO(URINE/SPUTUM) Comments: [id number] (TOTAL VOLUME = 80 cc) (REFRIGERATED) (80 cc URINE & 80 cc CYTOLYT ADDED IN 2 CONTAINERS)
== END 2022-08-09 09:38 | disposition home or self-care (01) ==
LOC: LBN 09:37
PROVIDERS: PCP Family Medicine; Visit Provider Urology
DX: C67.9 Malignant neoplasm of bladder, unspecified (principal)
CPT/HCPCS: 88104

== ENCOUNTER 2023-02-19 12:03 | Outpatient (CLI) | payer MEDICARE, SELFPAY ==
[2023-02-19 10:19] LABS: HCT 39.3 % (40.0-50.0); HGB 13.3 g/dL (13.5-17.5); MCH 32.8 pg (27.0-33.0); MCHC 33.8 % (32.0-36.0); MCV 97 fL (80-95); MPV 11.4 fL (8.0-11.0); Platelet Count 176 10^3/uL (130-400); RBC 4.06 10^6/uL (4.36-5.78); RDW 13.1 % (11.8-14.1); WBC 9.87 10^3/uL (4.4-10.8)
[2023-02-19 10:30] LABS: CREATININE 1.1 mg/dL (0.70-1.30); Calculated LDL 56 mg/dL (<100); Cholesterol 108 mg/dL (<200); Estimated GFR 65.38 (mL/min/1.73m2); HDL Cholesterol 39 mg/dL (40-60); Potassium 4.5 mmol/L (3.5-5.1); Triglyceride 65 mg/dL (<150)
== END 2023-02-19 12:04 | disposition home or self-care (01) ==
LOC: LBO 12:04
PROVIDERS: PCP Family Medicine; Visit Provider Family Medicine
DX: I10 Essential (primary) hypertension (principal); E78.5 Hyperlipidemia, unspecified; R53.83 Other fatigue
CPT/HCPCS: 36415; 80061; 85027; 82565; 84132

== ENCOUNTER 2023-03-06 09:04 | Outpatient (CLI) | payer MEDICARE, SELFPAY ==
--- NOTE | 2023-03-06 09:00 | RT.EKG_ITS ---
APPROVED REPORT Exam: Resting ECG Reason for Exam: afib Patient Location: O HR:51 bpm ECG Measurements Heart Rate 51 AX[address] [place] [id number] P [id number] QRSd 138 QRS -29 QT 468 T 165 QTc 432 Conclusion Atrial fibrillation...? atrial activity Right bundle branch block...QRSd>120, terminal axis(90,270) Left ventricular hypertrophy with repolarization abnormalities
== END 2023-03-06 09:05 | disposition home or self-care (01) ==
LOC: DI.CARD 09:04
PROVIDERS: PCP Family Medicine; Visit Provider Internal Medicine Cardiovascular Disease
DX: I48.91 Unspecified atrial fibrillation (principal)
CPT/HCPCS: 93010

== ENCOUNTER → 2023-03-06 09:18 | Outpatient (BNVA) | payer MEDICARE, SELFPAY | PROVIDERS: PCP Family Medicine; Referring Provider Family Medicine; Visit Provider Internal Medicine Cardiovascular Disease | DX: I10 Essential (primary) hypertension (principal); E78.5 Hyperlipidemia, unspecified; I48.91 Unspecified atrial fibrillation | CPT/HCPCS: 93005; 99214 ==

== ENCOUNTER → 2023-05-22 12:52 | Outpatient (BNVA) | payer MEDICARE, SELFPAY | PROVIDERS: PCP Family Medicine; Visit Provider Internal Medicine Cardiovascular Disease | DX: Z79.01 Long term (current) use of anticoagulants (principal); I48.91 Unspecified atrial fibrillation; I10 Essential (primary) hypertension | CPT/HCPCS: 99213 ==

== ENCOUNTER 2024-02-25 07:10 | Outpatient (CLI) | payer MEDICARE, SELFPAY ==
[2024-02-25 08:22] LABS: Estimated GFR 72.84 (mL/min/1.73m2); Potassium 4.5 mmol/L (3.5-5.1)
== END 2024-02-25 07:11 | disposition home or self-care (01) ==
LOC: LBO 07:10
PROVIDERS: PCP Family Medicine; Visit Provider Family Medicine
DX: I10 Essential (primary) hypertension (principal)
CPT/HCPCS: 36415; 82565; 84132

== ENCOUNTER → 2024-05-20 12:57 | Outpatient (BNVA) | payer MEDICARE, SELFPAY | PROVIDERS: PCP Family Medicine; Visit Provider Internal Medicine Cardiovascular Disease | DX: I48.21 Permanent atrial fibrillation (principal) | CPT/HCPCS: 99213 ==

== ENCOUNTER 2025-03-03 15:14 | Outpatient (CLI) | payer MEDICARE, SELFPAY ==
[2025-03-03 15:03] LABS: HCT 36.5 % (40.0-50.0); MCH 31.7 pg (27.0-33.0); MCHC 32.9 % (32.0-36.0); MCV 96 fL (80-95); MPV 10.3 fL (8.0-11.0); Platelet Count 184 10^3/uL (130-400); RBC 3.79 10^6/uL (4.36-5.78); RDW 13.3 % (11.8-14.1); RDW-SD 47.8 fL; WBC 8.61 10^3/uL (4.4-10.8)
[2025-03-03 15:33] LABS: CREATININE 0.8 mg/dL (0.70-1.30); Estimated GFR 85.12 (mL/min/1.73m2)
[2025-03-03 16:51] LABS: Lab Add On Test DONE
[2025-03-03 17:07] LABS: Iron 57 ug/dL (65-175)
[2025-03-03 17:34] LABS: Ferritin 74 ng/mL (26-388); Vitamin B12 903 pg/mL (193-986)
== END 2025-03-03 15:15 | disposition home or self-care (01) ==
LOC: LBO 15:14
PROVIDERS: PCP Family Medicine; Visit Provider Family Medicine
DX: I10 Essential (primary) hypertension (principal); R53.83 Other fatigue; D64.9 Anemia, unspecified
CPT/HCPCS: 36415; 85027; 82565; 82607; 82728; 83540

== ENCOUNTER 2025-05-24 07:56 | Outpatient (CLI) | payer MEDICARE, SELFPAY ==
--- NOTE | 2025-05-24 07:45 | RT.EKG_ITS ---
APPROVED REPORT Exam: Resting ECG Reason for Exam: afib Patient Location: O HR:63 bpm ECG Measurements Heart Rate 63 AXIS [place] [id number] P [id number] QRSd 138 QRS -44 QT 453 T 128 QTc 464 Conclusion Atrial fibrillation...? atrial activity Ventricular premature complex...V complex w/ short R-R interval Right bundle branch block...QRSd>120, terminal axis(90,270) LAFB LVH with IVCD and secondary repol abnrm...multi-criteria, wQRSd, abnr ST-T
== END 2025-05-24 07:57 | disposition home or self-care (01) ==
LOC: DI.CARD 08:06
PROVIDERS: PCP Family Medicine; Visit Provider Internal Medicine Cardiovascular Disease
DX: I48.21 Permanent atrial fibrillation (principal); I45.10 Unspecified right bundle-branch block; I44.4 Left anterior fascicular block
CPT/HCPCS: 93010

== ENCOUNTER → 2025-05-24 10:35 | Outpatient (BNVA) | payer MEDICARE, SELFPAY | PROVIDERS: PCP Family Medicine; Referring Provider Family Medicine; Visit Provider Internal Medicine Cardiovascular Disease | DX: I48.21 Permanent atrial fibrillation (principal); I10 Essential (primary) hypertension | CPT/HCPCS: 99213; 93005 ==

== ENCOUNTER 2025-07-29 00:08 | Outpatient (CLI) | payer MEDICARE, SELFPAY ==
[2025-07-29 14:32] LABS: Iron 83 ug/dL (65-175)
[2025-07-29 16:59] LABS: Ferritin 102 ng/mL (26-388)
== END 2025-07-29 00:09 | disposition home or self-care (01) ==
LOC: LOS 00:08
PROVIDERS: PCP Family Medicine; Visit Provider Family Medicine
DX: D64.9 Anemia, unspecified (principal)
CPT/HCPCS: 36415; 82728; 83540